=== PATIENT | male | born 1955 | race Caucasian/White ===

== ENCOUNTER 2016-09-14 04:41 | Emergency (ER) | payer MEDICARE, BC ==
[2016-09-14] MEDS ORDERED: Sodium Chloride 0.9% 1,000 ML IV SCH (05:15)
--- NOTE | 2016-09-14 05:18 | EDM.PDOC ---
<Taras Cordova Noni - Last Filed: 09/14/16 07:07> ED HPI GI/ABDOMINAL - General Chief Complaint: Gastrointestinal Problem Stated Complaint: VOMITING/DIABETIC Time Seen by Provider: 09/14/16 05:00 Source of Information: Reports: Patient, Family (), RN notes reviewed History Limitations: Reports: No limitations - History of Present Illness INITIAL COMMENTS - FREE TEXT/NARRATIVE: The patient states that he developed nausea, vomiting, and abdominal cramps around noon yesterday, 09/13/2016. His blood glucose was normal all day, but apparently went up into the 300s last night. He has not had a fever, to his knowledge. No recent spoiled food. No recent antibiotics. No recent travel. His , who has been eating the same food, has not been ill. No prior similar symptoms. - Related Data Allergies/ADRs: Allergies Allergy/AdvReac Type Severity Reaction Status Date / Time Penicillins Allergy Anaphylactic Verified 03/09/16 06:22 Shock Home Meds: Home Meds Baclofen 20 mg PO BID 03/09/16 [History] Diazepam [Valium] 10 mg PO TID PRN 03/09/16 [History] Morphine [MS Contin] 60 mg PO TID 03/09/16 [History] Ondansetron [Zofran ODT] 4 mg PO Q6H #6 tab.dis 03/09/16 [Rx] Dicyclomine HCl [Bentyl] 20 mg PO Q6HR PRN 09/14/16 [History] Insulin Aspart [NovoLOG] 1 dose SQ ASDIRECTED 09/14/16 [History] Ondansetron [Zofran ODT] 4 mg PO Q6H #8 tab.dis 09/14/16 [Rx] Past Medical History Cardiovascular History: Reports: High cholesterol Respiratory History: Reports: COPD Musculoskeletal History: Reports: Arthritis Neurological History: Reports: Neuropathy, diabetic Psychiatric History: Reports: Anxiety Endocrine/Metabolic History: Reports: Diabetes, type II, Hypothyroidism, Obesity /BMI 30+ - Past Surgical History HEENT Surgical History: Reports: Tonsillectomy GI Surgical History: Reports: Cholecystectomy Neurological Surgical History: Reports: C-Spine (ACDF) Musculoskeletal Surgical History: Reports: Arthroscopic procedure (Left rotator cuff) Social & Family History - Family History Family Medical History: Noncontributory - Tobacco Use Smoking Status *Q: Current Every Day Smoker Years of Tobacco use: 40 Packs/Tins Daily: 0.5 - Alcohol Use Alcohol Use History: Yes Alcohol Use Frequency: Rarely - Recreational Drug Use Recreational Drug Use: No - Living Situation & Occupation Living situation: Reports: , with spouse Occupation: retired ED ROS GENERAL - Review of Systems Review Of Systems: See Below Constitutional: Reports: no symptoms HEENT: Reports: No symptoms Respiratory: Reports: No Symptoms Cardiovascular: Reports: No symptoms Endocrine: Reports: no symptoms GI/Abdominal: Reports: No symptoms : Reports: no symptoms Musculoskeletal: Reports: no symptoms Skin: Reports: no symptoms Neurological: Reports: No Symptoms Psychiatric: Reports: No symptoms Hematologic/Lymphatic: Reports: no symptoms Immunologic: Reports: no symptoms ED EXAM, GI/ABD - Physical Exam Exam: See Below Exam Limited By: No limitations General Appearance: alert, WD/WN, no apparent distress Eyes: bilateral: normal appearance, EOMI Ears: normal external exam, hearing grossly normal Nose: normal inspection, no blood Throat/Mouth: Normal inspection, Normal lips, Normal voice, No airway compromise Head: atraumatic, normocephalic Neck: normal inspection, full range of motion Respiratory/Chest: no respiratory distress, lungs clear, normal breath sounds, no accessory muscle use, chest non-tender Cardiovascular: normal peripheral pulses, regular rate, rhythm, no edema, no gallop, no JVD, no murmur, no rub GI/Abdominal: normal bowel sounds, soft, no organomegaly, no distention, no abnormal bruit, no mass, tenderness (Generalized, non-focal, but more severe than expected) Back Exam: normal inspection, full range of motion, NT Extremities: normal inspection, normal range of motion, normal capillary refill Neurological: alert, oriented, normal cognition, no motor/sensory deficits Psychiatric: normal affect Skin Exam: Warm, Dry, Intact, Normal color, No rash Lymphatic: no adenopathy Course - Vital Signs Last Recorded V/S: Last Vital Signs Temp 36.6 C 09/14/16 04:49 Pulse 98 09/14/16 04:49 Resp 20 09/14/16 04:49 BP 147/75 H 09/14/16 04:49 Pulse Ox 98 09/14/16 04:49 - Orders/Labs/Meds Orders: Active Orders 24 hr Category Date Time Status GLUCOSE,POC [POC] Routine Lab 09/14/16 08:50 Received Labs: Laboratory Tests 09/14/16 09/14/16 09/14/16 Range/Units 05:53 05:53 06:45 WBC 10.62 H (4.23-9.07) K/mm3 RBC 5.29 (4.63-6.08) M/mm3 Hgb 16.0 (13.7-17.5) gm/L Hct 47.8 (40.1-51.0) % MCV 90.4 (79.0-92.2) fl MCH 30.2 (25.7-32.2) pg MCHC 33.5 (32.2-35.5) g/dl RDW Std Deviation 43.5 (35.1-43.9) fL Plt Count 219 (163-337) K/mm3 MPV 11.1 (9.4-12.3) fl Neutrophils % (Manual) 87 H (40-60) % Band Neutrophils % 1 (0-10) % Lymphocytes % (Manual) 11 L (20-40) % Atypical Lymphs % 0 % Monocytes % (Manual) 1 L (2-10) % Eosinophils % (Manual) 0 L (0.8-7.0) % Basophils % (Manual) 0 L (0.2-1.2) Platelet Estimate Adequate RBC Morph Comment Normal Sodium 137 (136-145) mEq/L Potassium 4.0 (3.5-5.1) mEq/L Chloride 98 (98-107) mEq/L Carbon Dioxide 26 (21-32) mEq/L Anion Gap 17.0 H (5-15) BUN 21 H (7-18) mg/dL Creatinine 1.3 (0.7-1.3) mg/dL Est Cr Clr Drug Dosing 61.61 mL/min Estimated GFR (MDRD) 56 (>60) mL/min BUN/Creatinine Ratio 16.2 (14-18) Glucose 346 H (80-115) mg/dL POC Glucose (80-115) mg/dL Calcium 8.9 (8.5-10.1) mg/dL Total Bilirubin 0.5 (0.2-1.0) mg/dL AST 26 (15-37) U/L ALT 50 (16-63) U/L Alkaline Phosphatase 126 H (46-116) U/L Total Protein 7.7 (6.4-8.2) g/dl Albumin 4.0 (3.4-5.0) g/dl Globulin 3.7 gm/dL Albumin/Globulin Ratio 1.1 (1-2) Lipase 73 (73-393) U/L Urine Color Yellow (Yellow) Urine Appearance Clear (Clear) Urine pH 5.5 (5.0-8.0) Ur Specific [place] 1.020 (1.005-1.030) Urine Protein 1+ H (Negative) Urine Glucose (UA) 2+ H (Negative) Urine Ketones 3+ H (Negative) Urine Occult Blood 1+ H (Negative) Urine Nitrite Negative (Negative) Urine Bilirubin Negative (Negative) Urine Urobilinogen 0.2 (0.2-1.0) Ur Leukocyte Esterase Negative (Negative) Urine RBC 5-10 H (0-5) /hpf Urine WBC 0-5 (0-5) /hpf Ur Epithelial Cells Not seen (0-5) /hpf Urine Bacteria Not seen (FEW) /hpf Urine Mucus Not seen (FEW) /hpf 09/14/16 Range/Units 07:26 WBC (4.23-9.07) K/mm3 RBC (4.63-6.08) M/mm3 Hgb (13.7-17.5) gm/L Hct (40.1-51.0) % MCV (79.0-92.2) fl MCH (25.7-32.2) pg MCHC (32.2-35.5) g/dl RDW Std Deviation (35.1-43.9) fL Plt Count (163-337) K/mm3 MPV (9.4-12.3) fl Neutrophils % (Manual) (40-60) % Band Neutrophils % (0-10) % Lymphocytes % (Manual) (20-40) % Atypical Lymphs % % Monocytes % (Manual) (2-10) % Eosinophils % (Manual) (0.8-7.0) % Basophils % (Manual) (0.2-1.2) Platelet Estimate RBC Morph Comment Sodium (136-145) mEq/L Potassium (3.5-5.1) mEq/L Chloride (98-107) mEq/L Carbon Dioxide (21-32) mEq/L Anion Gap (5-15) BUN (7-18) mg/dL Creatinine (0.7-1.3) mg/dL Est Cr Clr Drug Dosing mL/min Estimated GFR (MDRD) (>60) mL/min BUN/Creatinine Ratio (14-18) Glucose (80-115) mg/dL POC Glucose 324 H (80-115) mg/dL Calcium (8.5-10.1) mg/dL Total Bilirubin (0.2-1.0) mg/dL AST (15-37) U/L ALT (16-63) U/L Alkaline Phosphatase (46-116) U/L Total Protein (6.4-8.2) g/dl Albumin (3.4-5.0) g/dl Globulin gm/dL Albumin/Globulin Ratio (1-2) Lipase (73-393) U/L Urine Color (Yellow) Urine Appearance (Clear) Urine pH (5.0-8.0) Ur Specific [place] (1.005-1.030) Urine Protein (Negative) Urine Glucose (UA) (Negative) Urine Ketones (Negative) Urine Occult Blood (Negative) Urine Nitrite (Negative) Urine Bilirubin (Negative) Urine Urobilinogen (0.2-1.0) Ur Leukocyte Esterase (Negative) Urine RBC (0-5) /hpf Urine WBC (0-5) /hpf Ur Epithelial Cells (0-5) /hpf Urine Bacteria (FEW) /hpf Urine Mucus (FEW) /hpf Meds: Medications Discontinued Medications Generic Name Dose Route Start Last Admin Trade Name Freq PRN Reason Stop Dose Admin Hydromorphone HCl 1 mg 09/14/16 06:10 09/14/16 06:23 Dilaudid IVPUSH 09/14/16 06:11 1 mg ONETIME ONE Administration Sodium Chloride 1,000 mls @ 150 mls/hr 09/14/16 05:15 09/14/16 05:29 Normal Saline IV 150 mls/hr ASDIRECTED COREY Administration Promethazine HCl 25 mg/ Sodium 51 mls @ 100 mls/hr 09/14/16 06:30 09/14/16 07 :08 Chloride IV 09/14/16 07:00 100 mls/hr ONETIME ONE Administration Sodium Chloride 1,000 mls @ 999 mls/hr 09/14/16 07:10 09/14/16 07:48 Normal Saline IV 09/14/16 08:10 999 mls/hr ONETIME ONE Administration Insulin Human Regular 10 unit 09/14/16 07:09 09/14/16 07:38 Humulin R SUBCUT 09/14/16 07:10 10 units ONETIME STA Administration Protocol Iopamidol 20 ml 09/14/16 06:43 09/14/16 06:59 Isovue-370 (76%) IVPUSH 09/14/16 06:44 20 ml ONETIME ONE Administration Iopamidol 100 ml 09/14/16 06:43 09/14/16 06:59 Isovue-370 (76%) IVPUSH 09/14/16 06:44 100 ml ONETIME ONE Administration Ondansetron HCl 8 mg 09/14/16 05:11 09/14/16 05:30 Zofran IVPUSH 09/14/16 05:12 4 mg ONETIME ONE Administration - Re-Assessments/Exams Free Text/Narrative Re-Assessment/Exam: 09/14/16 07:[address] Lopez, and care of the patient turned over to him at this time, for change of shift. Departure - Departure Disposition: Home, Self-Care 01 Clinical Impression: Nausea and vomiting in adult, Elevated blood sugar Acute gastritis Qualifiers: Gastritis type: other gastritis Gastritis bleeding: without bleeding Qualified Code(s): K29.00 - Acute gastritis without bleeding Abdominal pain Qualifiers: Abdominal location: epigastric Qualified Code(s): R10.13 - Epigastric pain Prescriptions: Ondansetron [Zofran ODT] 4 mg PO Q6H #8 tab.dis Referrals: Nate Silva MD [Primary Care Provider] - Forms: ED Department Discharge Additional Instructions: Evaluation in the emergency room today in regards to sudden onset of abdominal pain with nausea and vomiting starting at noon yesterday. Emesis was bilious. No blood noted. No diarrhea ensued. Lab work identified elevated blood sugar 346 with a metabolic acidosis ensure not able to use carbohydrates for energy. Breaking down your blood fats causing acidosis and blood which continues to the nausea vomiting and abdominal pain. CT of head was performed it did not reveal anything sinister or serious. He does show increased stool throughout the transverse colon only. You're treated in the ED with intravenous fluids and medication Phenergan 25 mg IV for nausea relief. Dilaudid 1 mg was given for pelvic pain relief as well. Treatment at home is clear fluids today such as Gatorade Powerade 5-6 ounces per hour. Zofran 4 mg under the tongue every 4-6 hours needed to relieve nausea or vomiting. When feeling better, try crackers first ,if tolerated then advance to soup broth or lites soup such as turkey rice turkey ,noodle etc. You are to monitor blood sugars every 2-4 hours and you may have to give yourself a few extra doses of insulin per sliding scale if blood sugars remain high due to current illness. Given 10 units of regular Humalog insulin in the ED subcutaneously. <Abel Lopez - Last Filed: 09/14/16 08:57> Course - Re-Assessments/Exams Free Text/Narrative Re-Assessment/Exam: 09/14/16 07:[address] Cordova at change of shift. He did about an elevated anion gap at 17.9 which may be contributing to some of his abdominal pain. CT is pending. Certainly back at 346 and therefore he will receive 10 units of Humalog insulin subcutaneously at this time. IV will be opened up to 999 mils per hour to try and reduce his metabolic acidosis. 09/14/16 07:27 CT of the abdomen and pelvis has been completed. It is essentially within normal limits. His abdominal pain is partially due to his metabolic acidosis and partially due to recurrent vomiting. There is a fair amount of stool throughout the transverse colon as well. Patient reports that he still feeling quite a bit of upper abdominal discomfort. Further nausea the Phenergan is running at this time. IV will be opened to full once the Phenergan has been infused. 09/14/16 08:47 Urinalysis showed 3+ ketones and 5-10 RBCs per high-power field. Patient is starting to feel better. He's just about completely full liter of IV fluid. He'll be discharged home on clear fluids such as Gatorade Powerade slept most of the day. Zofran 44 mg sublingual every 4-6 hours when necessary for nausea or vomiting relief. He'll monitor his sugars closely and use insulin on a sliding scale to maintain control of his blood sugars. Departure - Departure Time of Disposition: 08:48 Condition: fair
[2016-09-14] MEDS: Ondansetron 4 MG/2 ML SDV IVPUSH ONE ×2 (05:25→05:30)
[2016-09-14] MEDS ORDERED: HYDROmorphone 1 MG/ML Syringe IVPUSH ONE (06:10)
[2016-09-14] MEDS ORDERED: Promethazine 25 MG in Sodium Chloride 0.9% 50 ML IV ONE (06:30)
[2016-09-14] MEDS ORDERED: Iopamidol 755 Mg/ML 100 ML Bottle IVPUSH ONE (06:43)
[2016-09-14] MEDS ORDERED: Iopamidol 755 MG/ML 50 ML Bottle IVPUSH ONE (06:43)
[2016-09-14] MEDS ORDERED: Insulin Regular, Human 100 Units/ML 3 ML Vial SUBCUT STA (07:09)
[2016-09-14] MEDS ORDERED: Sodium Chloride 0.9% 1,000 ML IV ONE (07:10)
--- NOTE | 2016-09-14 07:28 | CT ---
CT abdomen and pelvis Technique: Multiple axial sections were obtained from above the dome of the diaphragm inferiorly through the pubic symphysis. Intravenous and oral contrast was utilized. Delayed images were also obtained through the bladder. Comparison: Previous abdominal x-ray of 03/09/16. Findings: Visualized lung bases show nothing acute. Liver shows no focal parenchymal abnormality. Spleen appears within normal limits. Adrenal glands show no nodule. Pancreas is somewhat atrophied but otherwise unremarkable. Kidneys show contrast enhancement without hydronephrosis or mass. Aorta shows atherosclerotic calcification which continues into the iliac vessels. No aneurysm is seen. No retroperitoneal adenopathy or mesenteric abnormalities are noted. No bowel dilatation is seen. Appendix is seen and appears normal. No free fluid or inflammatory change is seen. Delayed images show contrast within the bladder. Bone window settings show scattered degenerative change within the spine. Degenerative change most prominent within the apophyseal joints at L4-L5 and L5-S1. Impression: 1. Incidental findings. Nothing acute is appreciated on CT study of the abdomen and pelvis. Diagnostic code #2
[2016-09-14 17:40] VITALS: BP 142/70
== END 2016-09-14 09:10 | disposition home or self-care (01) ==
LOC: JD.ED 04:41
DX: K29.00 Acute gastritis without bleeding (principal); E78.00 Pure hypercholesterolemia, unspecified; J44.9 Chronic obstructive pulmonary disease, unspecified; F41.9 Anxiety disorder, unspecified; E11.9 Type 2 diabetes mellitus without complications; E03.9 Hypothyroidism, unspecified; E66.9 Obesity, unspecified; Z90.49 Acquired absence of other specified parts of digestive tract; Z98.890 Other specified postprocedural states; Z79.4 Long term (current) use of insulin; F17.210 Nicotine dependence, cigarettes, uncomplicated; Z88.0 Allergy status to penicillin; Z68.33 Body mass index [BMI] 33.0-33.9, adult
CPT/HCPCS: 36415; 74177; 80053; 81001; 82962; 83690; 85025; 96361; 96365; 96372; 96375; 99284; J1170; J1817; J2405; J2550; J7040; J7050; Q9967

== ENCOUNTER 2019-06-17 06:23 | Emergency (ER) | payer MEDICARE, BC ==
[2019-06-17 06:40] VITALS: BP 141/79; PULSE 80
--- NOTE | 2019-06-17 07:12 | EDM.PDOC ---
ED HPI GENERAL MEDICAL PROBLEM - General Chief Complaint: General Stated Complaint: FALL/POST BACK SURGERY/OPEN WOUND Time Seen by Provider: 06/17/19 06:32 Source of Information: Reports: Patient, Family History Limitations: Reports: No Limitations - History of Present Illness INITIAL COMMENTS - FREE TEXT/NARRATIVE: The patient presents with drainage from his incision post back surgery. One week ago he had back surgery with Dr Ramirez at [facility] in [place]. He has fallen about 3 times. He has balance issues due to cervical spine issues in the past. He does not have more pain in his back but he has drainage from the upper part of the incision. The rosi are still intact. He has no fever or chills. He has no other symptoms such as chest pain, shortness of breath, abdominal pain, nausea or vomiting. He still has some numbness and pain in his groin. That was there before the surgery. Onset: Gradual Duration: Day(s): Severity: Moderate Improves with: Reports: None Worsens with: Reports: None Associated Symptoms: Reports: No Other Symptoms - Related Data Allergies Allergy/AdvReac Type Severity Reaction Status Date / Time Penicillins Allergy Anaphylactic Verified 03/09/16 06:22 Shock Home Meds: Home Meds Baclofen 20 mg PO BID 03/09/16 [History] Diazepam [Valium] 10 mg PO Q8HR PRN 03/09/16 [History] Morphine [MS Contin] 60 mg PO BID 03/09/16 [History] Insulin Aspart [NovoLOG] 1 dose SQ ASDIRECTED 09/14/16 [History] Albuterol Sulfate [Proair Respiclick] 90 mcg IH Q6HR PRN 06/17/19 [History] Aspirin [Ecotrin EC] 81 mg PO DAILY 06/17/19 [History] Calcium Carbonate/Vitamin D3 [Calcium 600 + Vit D 400 Softgl] 600 mg PO DAILY [History] Cephalexin [Keflex] 500 mg PO QID #40 capsule 06/17/19 [Rx] Cyclobenzaprine HCl [Amrix] 30 mg PO DAILY PRN 06/17/19 [History] Empagliflozin [Jardiance] 10 mg PO DAILY 06/17/19 [History] Fluticasone Propion/Salmeterol [Fluticasone-Salmeterol 250-50] 1 each IH BID [History] Hydrocodone/Acetaminophen [Lorcet 5-325 mg Tablet] 1 each PO Q6HR PRN 06/17/19 [ History] Levothyroxine [Synthroid] 50 mcg PO DAILY 06/17/19 [History] Metoprolol Succinate 12.5 mg PO DAILY 06/17/19 [History] Multivitamin [Multivitamins] 1 PO DAILY 06/17/19 [History] Omeprazole 20 mg PO DAILY 06/17/19 [History] Orphenadrine [Norflex] 100 mg PO Q12HR PRN 06/17/19 [History] Polyethylene Glycol 3350 [MiraLAX] 17 gm PO DAILY 06/17/19 [History] Sertraline [Zoloft] 50 mg PO BEDTIME 06/17/19 [History] Tamsulosin [Flomax] 0.4 mg PO DAILY 06/17/19 [History] atorvaSTATin [Lipitor] 40 mg PO DAILY 06/17/19 [History] metFORMIN [Glucophage XR] 500 mg PO BID 06/17/19 [History] Past Medical History Cardiovascular History: Reports: High Cholesterol Respiratory History: Reports: COPD Gastrointestinal History: Reports: Chronic Constipation Musculoskeletal History: Reports: Arthritis Neurological History: Reports: Neuropathy, Diabetic, Other (See Below) Other Neuro History: headaches x 3 weeks Psychiatric History: Reports: Anxiety Endocrine/Metabolic History: Reports: Diabetes, Type II, Hypothyroidism, Obesity /BMI 30+ Other Endocrine/Metabolic History: Insulin pump and G6 sensor - Infectious Disease History Infectious Disease History: Reports: Chicken Pox, Measles, Shingles - Past Surgical History HEENT Surgical History: Reports: Tonsillectomy GI Surgical History: Reports: Cholecystectomy Musculoskeletal Surgical History: Reports: Arthroscopic Procedure, Other (See Below) Other Musculoskeletal Surgeries/Procedures:: spinal chord injury. cervical fusion and lumbar fusion. Social & Family History - Family History Family Medical History: Noncontributory - Tobacco Use Smoking Status *Q: Former Smoker Used Tobacco, but Quit: Yes Month/Year Tobacco Last Used: 04/12 - Caffeine Use Caffeine Use: Reports: Soda - Recreational Drug Use Recreational Drug Use: No - Living Situation & Occupation Living situation: Reports: , with Spouse Occupation: Retired ED ROS GENERAL - Review of Systems Review Of Systems: See Below Constitutional: Reports: No Symptoms HEENT: Reports: No Symptoms Respiratory: Reports: No Symptoms Cardiovascular: Reports: No Symptoms Endocrine: Reports: No Symptoms GI/Abdominal: Reports: No Symptoms : Reports: No Symptoms Musculoskeletal: Reports: Other (Drainage from an incission in the lumbar spine) ED EXAM, GENERAL - Physical Exam Exam: See Below Exam Limited By: No Limitations General Appearance: Alert, No Apparent Distress Ears: Normal External Exam Nose: Normal Inspection Head: Atraumatic, Normocephalic Neck: Normal Inspection Respiratory/Chest: No Respiratory Distress, Lungs Clear, Normal Breath Sounds Cardiovascular: Regular Rate, Rhythm, No Edema, No Murmur GI/Abdominal: Soft, Non-Tender, No Organomegaly, No Mass Back Exam: Other (Incision to the lumbar spine with rosi. No drainage at this time. There is some mild erythema to the wound edges and the tissue is warm to the touch.) Course - Vital Signs Last Recorded V/S: Last Vital Signs Temp 97.9 F 06/17/19 06:33 Pulse 80 06/17/19 06:33 Resp 16 06/17/19 06:33 BP 141/79 H 06/17/19 06:33 Pulse Ox 96 06/17/19 06:33 - Orders/Labs/Meds Orders: Active Orders 24 hr Category Date Time Status Lumbar Spine 2 or 3V [CR] Stat Exams 06/17/19 07:02 Taken SEDIMENTATION RATE AUTO [HEME] Stat Lab 06/17/19 07:11 Received Labs: Laboratory Tests 06/17/19 06/17/19 Range/Units 07:11 07:11 WBC 6.41 (4.23-9.07) K/mm3 RBC 3.70 L (4.63-6.08) M/mm3 Hgb 10.8 L (13.7-17.5) gm/dl Hct 33.3 L (40.1-51.0) % MCV 90.0 (79.0-92.2) fl MCH 29.2 (25.7-32.2) pg MCHC 32.4 (32.2-35.5) g/dl RDW Std Deviation 44.4 H (35.1-43.9) fL Plt Count 288 D (163-337) K/mm3 MPV 9.7 (9.4-12.3) fl Neut % (Auto) 64.1 (34.0-67.9) % Lymph % (Auto) 21.7 L (21.8-53.1) % [place] % (Auto) 12.2 (5.3-12.2) % Eos % (Auto) 1.2 (0.8-7.0) Baso % (Auto) 0.6 (0.1-1.2) % Neut # (Auto) 4.11 (1.78-5.38) K/mm3 Lymph # (Auto) 1.39 (1.32-3.57) K/mm3 [place] # (Auto) 0.78 (0.30-0.82) K/mm3 Eos # (Auto) 0.08 (0.04-0.54) K/mm3 Baso # (Auto) 0.04 (0.01-0.08) K/mm3 Sodium 142 (136-145) mEq/L Potassium 3.3 L (3.5-5.1) mEq/L Chloride 102 (98-107) mEq/L Carbon Dioxide 29 (21-32) mEq/L Anion Gap 14.3 (5-15) BUN 11 (7-18) mg/dL Creatinine 0.8 (0.7-1.3) mg/dL Est Cr Clr Drug Dosing 96.32 mL/min Estimated GFR (MDRD) > 60 (>60) mL/min BUN/Creatinine Ratio 13.8 L (14-18) Glucose 150 H (80-115) mg/dL Calcium 8.4 L (8.5-10.1) mg/dL Total Bilirubin 0.4 (0.2-1.0) mg/dL AST 172 H (15-37) U/L ALT 142 H (16-63) U/L Alkaline Phosphatase 93 (46-116) U/L C-Reactive Protein 34.5 H* (<1.0) mg/dL Total Protein 6.6 (6.4-8.2) g/dl Albumin 2.4 L (3.4-5.0) g/dl Globulin 4.2 gm/dL Albumin/Globulin Ratio 0.6 L (1-2) Meds: Medications Discontinued Medications Generic Name Dose Route Start Last Admin Trade Name Freq PRN Reason Stop Dose Admin Hydromorphone HCl 1 mg 06/17/19 07:50 Dilaudid IM 06/17/19 07:51 ONETIME ONE - Re-Assessments/Exams Free Text/Narrative Re-Assessment/Exam: 06/17/19 07:12 I ordered an x-ray of his back and some labs. 06/17/19 08:17 His x-ray shows nothing acute. His WBC was normal at 6.41. His Hgb is low at 10.8. His K is a little low at 3.3. His glucose is 150. His AST is elevated at 172. His ALT is elevated at 142. His CRP is elevated at 34.5. I called [facility] in [place] and talked with Dr Freeman and he said it would be early for an infection but he wanted the cultures and I will start him on some keflex until they come back. He has more pain so I have ordered some dilaudid 1mg IM. Departure - Departure Time of Disposition: 08:25 Disposition: Home, Self-Care 01 Condition: Good Clinical Impression: Wound drainage - Discharge Information *PRESCRIPTION DRUG MONITORING PROGRAM REVIEWED*: Not Applicable *COPY OF PRESCRIPTION DRUG MONITORING REPORT IN PATIENT SIM: Not Applicable Prescriptions: Cephalexin [Keflex] 500 mg PO QID #40 capsule Referrals: Nate Silva MD [Primary Care Provider] - Miguel Deshpande MD [Consulting Physician] - 1 Week Forms: ED Department Discharge Additional Instructions: Take your medication as prescribed. Take the keflex 4 times per day for 10 days. Please return if you are worse. Follow up with your doctor within a week. Sepsis Event Note - Evaluation Sepsis Screening Result: No Definite Risk - Focused Exam Vital Signs: Vital Signs Temp Pulse Resp BP Pulse Ox 06/17/19 06:33 97.9 F 80 16 141/79 H 96 Date Exam was Performed: 06/17/19 Time Exam was Performed: 08:17 - My Orders Last 24 Hours: My Active Orders 06/17/19 07:02 Lumbar Spine 2 or 3V [CR] Stat 06/17/19 07:11 SEDIMENTATION RATE AUTO [HEME] Stat - Assessment/Plan Last 24 Hours: My Active Orders 06/17/19 07:02 Lumbar Spine 2 or 3V [CR] Stat 06/17/19 07:11 SEDIMENTATION RATE AUTO [HEME] Stat
[2019-06-17] MEDS ORDERED: HYDROmorphone 1 MG/ML Syringe IM ONE (07:50)
--- NOTE | 2019-06-17 09:18 | CR ---
Lumbar spine: AP, lateral and cone down lateral view centered to the lumbosacral junction were obtained. Comparison: Previous lumbar spine study of 11/05/18. Transpedicle screws and intervertebral disc fixation is noted at L4-5 and L5-S1. Mild disc space narrowing is noted at T11-12 and T12-L1. Other disc spaces are maintained. Vertebral body heights are maintained. Pedicles are intact. Visualized transverse and spinous processes are intact. No subluxation or fracture is seen. Skin rosi are present within the posterior back. Impression: 1. Recent surgery at L4-5 and L5-S1. 2. Mild degenerative change. 3. Nothing acute is appreciated on 3 view lumbar spine exam. Diagnostic code #2 This report was dictated in [place] Standard Time
== END 2019-06-17 09:05 | disposition home or self-care (01) ==
LOC: JD.ED 06:23
DX: T81.89XA Other complications of procedures, not elsewhere classified, initial encounter (principal); J44.9 Chronic obstructive pulmonary disease, unspecified; E78.00 Pure hypercholesterolemia, unspecified; E11.40 Type 2 diabetes mellitus with diabetic neuropathy, unspecified; E66.9 Obesity, unspecified; E03.9 Hypothyroidism, unspecified; F41.9 Anxiety disorder, unspecified; Z79.82 Long term (current) use of aspirin; Z79.899 Other long term (current) drug therapy; Z79.4 Long term (current) use of insulin; Z79.84 Long term (current) use of oral hypoglycemic drugs; Z79.51 Long term (current) use of inhaled steroids; Z79.890 Hormone replacement therapy; Z87.891 Personal history of nicotine dependence; Z88.0 Allergy status to penicillin
CPT/HCPCS: 36415; 72100; 80053; 85025; 85652; 86140; 87075; 87205; 96372; 99283; J1170

== ENCOUNTER 2019-08-16 01:51 | Inpatient (IN) | payer MEDICARE, BC ==
[2019-08-16] MEDS ORDERED: Acetaminophen 325 MG Tab PO ONE (02:17)
--- NOTE | 2019-08-16 02:23 | EDM.PDOC ---
ED HPI GENERAL MEDICAL PROBLEM - General Chief Complaint: Respiratory Problem Stated Complaint: CHILLS COUGH HEADACHE Time Seen by Provider: 08/16/19 01:58 Source of Information: Reports: Patient, Family () History Limitations: Reports: No Limitations - History of Present Illness INITIAL COMMENTS - FREE TEXT/NARRATIVE: Mr. Mcneal is a very pleasant 64-year-old man with a past medical history significant for COPD and diabetes, who states that he was in his usual state of health until 23:30 tonight, when he suddenly developed a cough productive of clearish sputum, chills and shivers, and a headache. He is that his chest was burning all afternoon, although he is not able to elaborate - I got the impression that he was talking about GERD-like symptoms. No abdominal pain. He suffers from chronic constipation, but no recent diarrhea. No urinary symptoms. The patient did not take any [id number] or home remedies prior to coming to the ED. Here in the ED, the patient's BP is found to be elevated, he is tachycardic, tachypneic, with an oxygen saturation of 84% on room air, up to 91% on 4 L of oxygen per nasal cannula. The patient does not take supplemental oxygen at home. The patient's PCP is Dr. Nate Silva. He received an influenza vaccine this season. Neck Pain Score (Numeric/FACES): 7 - Related Data Allergies Allergy/AdvReac Type Severity Reaction Status Date / Time Penicillins Allergy Anaphylactic Verified 08/16/19 02:05 Shock Home Meds: Home Meds Baclofen 2.5 mg PO TID 03/09/16 [History] Diazepam [Valium] 10 mg PO Q8HR PRN 03/09/16 [History] Morphine [MS Contin] 120 mg PO BID 03/09/16 [History] Insulin Aspart [NovoLOG] 1 dose SQ ASDIRECTED 09/14/16 [History] Albuterol Sulfate [Proair Respiclick] 90 mcg IH Q6HR PRN 06/17/19 [History] Aspirin [Ecotrin EC] 81 mg PO DAILY 06/17/19 [History] Calcium Carbonate/Vitamin D3 [Calcium 600 + Vit D 400 Softgl] 600 mg PO DAILY [History] Cyclobenzaprine HCl [Amrix] 30 mg PO DAILY PRN 06/17/19 [History] Empagliflozin [Jardiance] 10 mg PO DAILY 06/17/19 [History] Fluticasone Propion/Salmeterol [Fluticasone-Salmeterol 250-50] 1 each IH BID [History] Levothyroxine [Synthroid] 50 mcg PO DAILY 06/17/19 [History] Metoprolol Succinate 25 mg PO DAILY 06/17/19 [History] Multivitamin [Multivitamins] 1 tab PO DAILY 06/17/19 [History] Omeprazole 20 mg PO DAILY 06/17/19 [History] Orphenadrine [Norflex] 100 mg PO Q12HR PRN 06/17/19 [History] Sertraline [Zoloft] 50 mg PO BEDTIME 06/17/19 [History] Tamsulosin [Flomax] 0.4 mg PO DAILY 06/17/19 [History] atorvaSTATin [Lipitor] 20 mg PO DAILY 06/17/19 [History] metFORMIN [Glucophage XR] 500 mg PO BID 06/17/19 [History] polyethylene glycoL 3350 [MiraLAX] 17 gm PO DAILY 06/17/19 [History] Benazepril [Lotensin] 10 mg PO DAILY 08/16/19 [History] Benzonatate 100 mg PO TID PRN 08/16/19 [History] Enalapril [Vasotec] 10 mg PO DAILY 08/16/19 [History] Past Medical History Cardiovascular History: Reports: High Cholesterol Respiratory History: Reports: COPD Musculoskeletal History: Reports: Arthritis Neurological History: Reports: Neuropathy, Diabetic Psychiatric History: Reports: Anxiety Endocrine/Metabolic History: Reports: Diabetes, Type II, Hypothyroidism, Obesity /BMI 30+ - Infectious Disease History Infectious Disease History: Reports: Chicken Pox, Measles, Shingles - Past Surgical History HEENT Surgical History: Reports: Tonsillectomy GI Surgical History: Reports: Cholecystectomy Neurological Surgical History: Reports: C-Spine (ACDF), Lumbar Spine (L5-S1 fusion) Musculoskeletal Surgical History: Reports: Shoulder Surgery (left rotator cuff repair, arthroscopic) Social & Family History - Family History Family Medical History: Noncontributory - Tobacco Use Smoking Status *Q: Former Smoker Years of Tobacco use: 49 Packs/Tins Daily: 1.5 Month/Year Tobacco Last Used: Quit Jan 2018 - Caffeine Use Caffeine Use: Reports: Soda - Alcohol Use Alcohol Use History: Yes Alcohol Use Frequency: Rarely - Recreational Drug Use Recreational Drug Use: No - Living Situation & Occupation Living situation: Reports: , with Spouse Occupation: Retired ED ROS GENERAL - Review of Systems Review Of Systems: Comprehensive ROS is negative, except as noted in HPI. GI/Abdominal: Reports: Constipation (chronic) ED EXAM, GENERAL - Physical Exam Exam: See Below Exam Limited By: No Limitations General Appearance: Alert, WD/WN, Mild Distress (complaining of cold) Eye Exam: Bilateral Eye: EOMI, Normal Inspection Ears: Normal External Exam, Hearing Loss Nose: Normal Inspection, No Blood Throat/Mouth: Normal Inspection, Normal Lips, Normal Voice, No Airway Compromise Head: Atraumatic, Normocephalic Neck: Normal Inspection, Full Range of Motion Respiratory/Chest: No Respiratory Distress, No Accessory Muscle Use, Decreased Breath Sounds (throughout). No: Crackles, Rhonchi, Wheezing, Stridor, Prolonged Expiration Cardiovascular: Normal Peripheral Pulses, No Edema, No Gallop, No JVD, No Murmur , No Rub, Tachycardia (regular) Peripheral Pulses: 4+: Radial (L), Radial (R) GI/Abdominal: Normal Bowel Sounds, Soft, Non-Tender, No Organomegaly, No Distention, No Abnormal Bruit, No Mass (Male) Exam: Deferred Rectal (Males) Exam: Deferred Back Exam: Normal Inspection, Full Range of Motion, NT Extremities: Normal Inspection, Normal Range of Motion, No Pedal Edema, Normal Capillary Refill Neurological: Alert, Oriented, Normal Cognition, No Motor/Sensory Deficits Psychiatric: Normal Affect Skin Exam: Warm, Dry, Intact, Normal Color, No Rash EKG INTERPRETATION EKG Date: 08/16/19 Time: 02:02 Rhythm: Other (Sinus tachycardia) Rate (Beats/Min): 113 Sterling: RAD-Right Sterling Deviation (slight) P-Wave: Present QRS: Normal ST-T: Normal QT: Normal Comparison: No Change (04/24/2018) Course - Vital Signs Last Recorded V/S: Last Vital Signs Temp 37.2 C 08/16/19 02:00 Pulse 133 H 08/16/19 02:00 Resp 28 H 08/16/19 02:00 BP 161/134 H 08/16/19 02:00 Pulse Ox 84 L 08/16/19 02:00 - Orders/Labs/Meds Orders: Active Orders 24 hr Category Date Time Status EKG Documentation Completion [RC] STAT Care 08/16/19 02:13 Active Ang Chest [CT] Stat Exams 08/16/19 03:38 Taken Chest 2V [CR] Stat Exams 08/16/19 02:13 Taken CULTURE BLOOD [BC] Stat Lab 08/16/19 02:39 Received CULTURE BLOOD [BC] Stat Lab 08/16/19 02:49 Received Sodium Chloride 0.9% [Normal Saline] 1,000 ml Med 08/16/19 03:45 Active IV ASDIRECTED Blood Culture x2 Reflex Set [OM.PC] Stat Oth 08/16/19 02:13 Ordered Medication Orders Sodium Chloride (Normal Saline) 1,000 mls @ 150 mls/hr IV ASDIRECTED COREY Last Admin: 08/16/19 04:08 Dose: 150 mls/hr Labs: Laboratory Tests 08/16/19 08/16/19 08/16/19 Range/Units 02:11 02:11 02:11 WBC 10.70 H (4.23-9.07) K/mm3 RBC 4.81 (4.63-6.08) M/mm3 Hgb 12.9 L D (13.7-17.5) gm/dl Hct 42.4 (40.1-51.0) % MCV 88.1 (79.0-92.2) fl MCH 26.8 (25.7-32.2) pg MCHC 30.4 L (32.2-35.5) g/dl RDW Std Deviation 46.1 H (35.1-43.9) fL Plt Count 364 H D (163-337) K/mm3 MPV 10.1 (9.4-12.3) fl Neutrophils % (Manual) 75 H (40-60) % Band Neutrophils % 0 (0-10) % Lymphocytes % (Manual) 21 (20-40) % Atypical Lymphs % 0 % Monocytes % (Manual) 3 (2-10) % Eosinophils % (Manual) 0 L (0.8-7.0) % Basophils % (Manual) 1 (0.2-1.2) Platelet Estimate Adequate Hypochromasia 1+ slight RBC Morph Comment Not Reportable PT 10.0 (9.7-12.0) SECONDS INR 0.93 APTT 27 (22-31) SECONDS D-Dimer, Quantitative 1.80 H (0.19-0.50) mg/L Puncture Site ABG pH (7.35-7.45) ABG pCO2 (35.0-45.0) mmHg ABG pO2 (80.0-100.0) mmHg ABG HCO3 (22.0-26.0) meq/L ABG O2 Saturation (96.0-97.0) % ABG Base Excess (-2-2.0) Michel Test A-a Gradient mmHg O2 Delivery Device Oxygen Flow Rate FiO2 (21.00-100.00) % Sodium 141 (136-145) mEq/L Potassium 4.9 D (3.5-5.1) mEq/L Chloride 102 (98-107) mEq/L Carbon Dioxide 30 (21-32) mEq/L Anion Gap 13.9 (5-15) BUN 18 (7-18) mg/dL Creatinine 0.9 (0.7-1.3) mg/dL Est Cr Clr Drug Dosing 85.62 mL/min Estimated GFR (MDRD) > 60 (>60) mL/min BUN/Creatinine Ratio 20.0 H (14-18) Glucose 109 (80-115) mg/dL Lactic Acid (0.4-2.0) mmol/L Calcium 8.8 (8.5-10.1) mg/dL Total Bilirubin 0.3 (0.2-1.0) mg/dL AST 23 (15-37) U/L ALT 27 (16-63) U/L Alkaline Phosphatase 122 H (46-116) U/L Troponin I < 0.017 (0.00-0.056) ng/mL NT-Pro-B Natriuret Pep (0-125) pg/mL Total Protein 7.9 (6.4-8.2) g/dl Albumin 3.5 (3.4-5.0) g/dl Globulin 4.4 gm/dL Albumin/Globulin Ratio 0.8 L (1-2) 08/16/19 08/16/19 08/16/19 Range/Units 02:11 02:11 02:25 WBC (4.23-9.07) K/mm3 RBC (4.63-6.08) M/mm3 Hgb (13.7-17.5) gm/dl Hct (40.1-51.0) % MCV (79.0-92.2) fl MCH (25.7-32.2) pg MCHC (32.2-35.5) g/dl RDW Std Deviation (35.1-43.9) fL Plt Count (163-337) K/mm3 MPV (9.4-12.3) fl Neutrophils % (Manual) (40-60) % Band Neutrophils % (0-10) % Lymphocytes % (Manual) (20-40) % Atypical Lymphs % % Monocytes % (Manual) (2-10) % Eosinophils % (Manual) (0.8-7.0) % Basophils % (Manual) (0.2-1.2) Platelet Estimate Hypochromasia RBC Morph Comment PT (9.7-12.0) SECONDS INR APTT (22-31) SECONDS D-Dimer, Quantitative (0.19-0.50) mg/L Puncture Site Rt radial ABG pH 7.43 (7.35-7.45) ABG pCO2 41.3 (35.0-45.0) mmHg ABG pO2 62.0 L (80.0-100.0) mmHg ABG HCO3 26.9 H (22.0-26.0) meq/L ABG O2 Saturation 92.4 L (96.0-97.0) % ABG Base Excess 2.8 H (-2-2.0) Michel Test Positive A-a Gradient 144 mmHg O2 Delivery Device Cannula Oxygen Flow Rate 4.0 FiO2 36.00 (21.00-100.00) % Sodium (136-145) mEq/L Potassium (3.5-5.1) mEq/L Chloride (98-107) mEq/L Carbon Dioxide (21-32) mEq/L Anion Gap (5-15) BUN (7-18) mg/dL Creatinine (0.7-1.3) mg/dL Est Cr Clr Drug Dosing mL/min Estimated GFR (MDRD) (>60) mL/min BUN/Creatinine Ratio (14-18) Glucose (80-115) mg/dL Lactic Acid 1.7 (0.4-2.0) mmol/L Calcium (8.5-10.1) mg/dL Total Bilirubin (0.2-1.0) mg/dL AST (15-37) U/L ALT (16-63) U/L Alkaline Phosphatase (46-116) U/L Troponin I (0.00-0.056) ng/mL NT-Pro-B Natriuret Pep 179 H (0-125) pg/mL Total Protein (6.4-8.2) g/dl Albumin (3.4-5.0) g/dl Globulin gm/dL Albumin/Globulin Ratio (1-2) Meds: Medications Generic Name Dose Route Start Last Admin Trade Name Freq PRN Reason Stop Dose Admin Sodium Chloride 1,000 mls @ 150 mls/hr 08/16/19 03:45 08/16/19 04:08 Normal Saline IV 150 mls/hr ASDIRECTED COREY Administration Discontinued Medications Generic Name Dose Route Start Last Admin Trade Name Freq PRN Reason Stop Dose Admin Acetaminophen 650 mg 08/16/19 02:17 08/16/19 02:24 Tylenol PO 08/16/19 02:18 650 mg NOW ONE Administration Levofloxacin 750 mg 08/16/19 05:30 08/16/19 05:38 Levaquin PO 08/16/19 05:31 750 mg ONETIME STA Administration - Re-Assessments/Exams Free Text/Narrative Re-Assessment/Exam: 08/16/19 02:18 With a history of cough and chills, and his vitals reflecting tachycardia, tachypnea, and hypoxemia, I am most concerned about pneumonia. I have ordered a work-up that includes blood work, an ABG, 2 sets of blood cultures, an influenza swab, a chest x-ray, and an ECG. I have ordered Tylenol. 08/16/19 02:38 The patient's ABG represents a mixed respiratory acidosis and metabolic alkalosis with hypoxemia. 08/16/19 03:39 The patient CBC is remarkable for WBC count mildly elevated at 10.70, but with 0 % bandemia. His hemoglobin is mildly depressed at 12.9, but with a hematocrit normal at 42.4. His platelets are mildly elevated at 364,000, with the remainder of his CBC being unremarkable. His CMP is remarkable only for alkaline phosphatase mildly elevated at 122, and is otherwise unremarkable. His troponin is undetectably low. His lactic acid level is within normal limits at 1.7. His BNP is mildly elevated at 179. His D-dimer is elevated at 1.80. His coags are within normal limits. His influenza swab is negative. The patient's elevated D-dimer is not due to renal insufficiency, therefore I have ordered a CT angiogram of his chest to evaluate for a PE, along with IV fluid. 08/16/19 04:38 Two-view chest radiograph reviewed. The cardiac silhouette is within normal limits. No pulmonary vascular congestion. No pleural effusions. There are 4 circular opacities in the lower half of the patient's left lung field suspicious for infiltrates vs malignancy. No pneumothorax. Formal read per the Radiologist pending. 08/16/19 05:12 CT angiogram of the chest is read by [facility] as "There are extensive airspace opacities throughout the left lung. The previously seen large area of opacification in the upper left lobe has resolved. The right lung is clear. No pleural effusion or pneumothorax. No evidence of pulmonary embolism. Normal thoracic aorta without aneurysm or dissection. There are slightly decreased shotty mediastinal lymph nodes. There is trace pericardial fluid anteriorly. The visualized abdominal structures are unremarkable. No fracture. " 08/16/19 05:27 Test results discussed with the patient and his . He looks much improved - no longer shivering. Because the patient is hypoxemic, he will require hospitalization, however, he can be treated with oral levofloxacin. The patient cannot be treated with Rocephin and azithromycin, as he has anaphylaxis to penicillin. Unfortunately, no beds are currently available, however, the patient does not want to be transferred to [place] (or possibly further, as we are told that both [place] hospitals may be full, also). The patient is willing to remain here in the ED until such time as a bed becomes available. Departure - Departure Time of Disposition: 05:30 Disposition: Admitted As Inpatient 66 Condition: Fair Clinical Impression: Pneumonia - Discharge Information *PRESCRIPTION DRUG MONITORING PROGRAM REVIEWED*: Not Applicable *COPY OF PRESCRIPTION DRUG MONITORING REPORT IN PATIENT SIM: Not Applicable Referrals: Nate Silva MD [Primary Care Provider] - Forms: ED Department Discharge Sepsis Event Note - Evaluation Sepsis Screening Result: Possible Sepsis Risk - Focused Exam Vital Signs: Vital Signs Temp Pulse Resp BP Pulse Ox 08/16/19 02:00 37.2 C 133 H 28 H 161/134 H 84 L Date Exam was Performed: 08/16/19 Time Exam was Performed: 06:14 - My Orders Last 24 Hours: My Active Orders 08/16/19 02:13 EKG Documentation Completion [RC] STAT Chest 2V [CR] Stat Blood Culture x2 Reflex Set [OM.PC] Stat 08/16/19 02:39 CULTURE BLOOD [BC] Stat 08/16/19 02:49 CULTURE BLOOD [BC] Stat 08/16/19 03:38 Ang Chest [CT] Stat 08/16/19 03:45 Sodium Chloride 0.9% [Normal Saline] 1,000 ml IV ASDIRECTED - Assessment/Plan Last 24 Hours: My Active Orders 08/16/19 02:13 EKG Documentation Completion [RC] STAT Chest 2V [CR] Stat Blood Culture x2 Reflex Set [OM.PC] Stat 08/16/19 02:39 CULTURE BLOOD [BC] Stat 08/16/19 02:49 CULTURE BLOOD [BC] Stat 08/16/19 03:38 Ang Chest [CT] Stat 08/16/19 03:45 Sodium Chloride 0.9% [Normal Saline] 1,000 ml IV ASDIRECTED
[2019-08-16] MEDS ORDERED: Sodium Chloride 0.9% 1,000 ML IV SCH (03:45)
[2019-08-16] MEDS ORDERED: Levofloxacin 750 MG Tab PO STA (05:30)
--- NOTE | 2019-08-16 07:17 | CT ---
CT chest Technique: Multiple axial sections through the chest were obtained. Intravenous contrast was utilized. Findings: Pulmonary arteries are not optimally opacified. No filling defects are seen within the main pulmonary arteries or segmental branches. Smaller subsegmental pulmonary emboli could be missed. Aorta shows no aneurysm. Several scattered lymph nodes are seen within the mediastinum some of which are slightly enlarged most likely due to a left lung process. No pericardial thickening is seen. Visualized portions of the upper abdominal structures show no discrete abnormality. Increased density is noted within the left upper and left lower lung. Right lung is clear. Bone window settings were reviewed which show scattered degenerative change within the spine. Prior cervical spine surgery is noted. No acute osseous finding is appreciated. Impression: 1. Diffuse patchy areas of increased density within the left upper and left lower lung. Findings most likely due to multifocal pneumonia. Severe viral infection can also cause a similar appearance. 2. No definite findings of pulmonary embolism as noted above. Diagnostic code #5 This report was dictated in [place] Standard Time I agree with preliminary report from [facility], finalized on 08/16/19, 6:07 AM Central Time
--- NOTE | 2019-08-16 07:17 | CR ---
Chest: Two views of the chest were obtained. Comparison: Prior chest CT of 04/24/18, no prior chest x-ray. Heart size and mediastinum are normal. Patchy areas of increased density with the left upper and left lower lung are seen. Right lung is clear. Bony structures appear within normal limits for the patient's age. Impression: 1. Patchy areas of increased density within the left chest. Findings most likely due to multifocal pneumonia. 2. Right lung is clear. Diagnostic code #3 This report was dictated in [place] Standard Time
[2019-08-16] MEDS ORDERED: Ondansetron 4 MG/2 ML SDV IV PRN (09:10)
[2019-08-16] MEDS ORDERED: Acetaminophen 325 MG Tab PO PRN (09:18)
[2019-08-16] MEDS: Acetaminophen 325 MG Tab PO PRN (09:44)
[2019-08-16] MEDS ORDERED: Polyethylene Glycol 3350 Powder 17 GM Packet PO SCH (10:00)
[2019-08-16] MEDS ORDERED: SALMETEROL IH SCH (10:00)
[2019-08-16] MEDS ORDERED: FLUTICASONE PROPION IH SCH (10:00)
[2019-08-16] MEDS ORDERED: INSULIN ASPART SQ SCH (10:00)
[2019-08-16] MEDS ORDERED: Metoprolol Succinate 25 MG Tab.ER PO SCH (10:00)
[2019-08-16] MEDS ORDERED: Aspirin 81 MG Tab.EC PO SCH (10:00)
--- NOTE | 2019-08-16 10:11 | PCM.HP.2 ---
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 He reports symptoms began suddenly around 2330. Denies any diarrhea but does state he has chronic constipation. Denies any urinary symptoms. In the ED temp was 37.2 C. Pulse 133. Respirations 20. Blood pressure 161/ 134. Pulse ox 84%. Twelve-lead EKG is obtained showing a sinus tachycardia with right axis deviation 113 bpm. No change from 04/24/2018. Labs were obtained: White count is slightly elevated at 10.70. Hemoglobin is low at 12.9. Hematocrit 42.4. He is normocytic. Platelets are high at 264,000. Neutrophils are elevated at 75%. There is no bandemia. PT is 10. INR 0.93. APTT is 27. D-dimer is 1.80. Sodium is 141. Potassium is 4.9. Chloride 102. Carbon dioxide 30. Anion gap 13.9. BUN is 18. Creatinine 0.9. GFR greater than 60. Glucose is 109. Calcium 8.8. Bilirubin 0.3. AST is 23. ALT 27. Alkaline phosphatase is slightly high at 122. Troponin is negative at less than 0.017. Protein 7.9. Albumin 3.5. ABGs obtained in the right radial showing a pH of 7.43. PCO2 of 41.3. PO2 of 62.0. HCO3 26.9. O2 saturation 92.4. Base excess of 2.8. This is well on 4 L via nasal cannula. Lactic acid is 1.7. proBNP is 179. He is given Tylenol and started on 150 mL/h of NS. He is also given 750 mg p.o. Levaquin. Influenza swab is obtained which is negative. Blood cultures were obtained and pending. Chest x-ray is obtained and shows a patchy area of increased density within the left chest findings are most likely due to multifocal pneumonia. Nothing is seen in the right chest. CT angiogram is obtained interpreted by Dr. Zhang as "1. Diffuse patchy area of increased density within the left upper and left lower lung. Findings most likely due to multifocal pneumonia. Severe viral infection can also cause a similar appearance. 2. No definite findings of pulmonary embolism as noted." His symptoms are noted to improve in the ED however he is requiring oxygen. We were on diversion at the time the patient refused to be transferred and opted instead to remain in the ED until a bed opened up. History of HLD, COPD, arthritis, diabetic neuropathy, anxiety, type II DM, hypothyroidism, obesity. He is a former smoker. He is a full code. His PCP is Dr. Silva. Neck Pain Score (Numeric/FACES): 7 - Related Data Allergies/Adverse Reactions: Allergies Allergy/AdvReac Type Severity Reaction Status Date / Time Penicillins Allergy Anaphylactic Verified 08/16/19 02:05 Shock Home Medications: Home Meds Diazepam [Valium] 10 mg PO Q8HR PRN 03/09/16 [History] Morphine [MS Contin] 120 mg PO BID 03/09/16 [History] Insulin Aspart [NovoLOG] 1 dose SQ ASDIRECTED 09/14/16 [History] Albuterol Sulfate [Proair Respiclick] 90 mcg IH Q6HR PRN 06/17/19 [History] Aspirin [Ecotrin EC] 81 mg PO DAILY 06/17/19 [History] Calcium Carbonate/Vitamin D3 [Calcium 600 + Vit D 400 Softgl] 600 mg PO DAILY [History] Empagliflozin [Jardiance] 10 mg PO DAILY 06/17/19 [History] Fluticasone Propion/Salmeterol [Fluticasone-Salmeterol 250-50] 1 each IH BID [History] Multivitamin [Multivitamins] 1 tab PO DAILY 06/17/19 [History] Omeprazole 20 mg PO DAILY 06/17/19 [History] Orphenadrine [Norflex] 100 mg PO Q12HR PRN 06/17/19 [History] Sertraline [Zoloft] 50 mg PO BEDTIME 06/17/19 [History] Tamsulosin [Flomax] 0.4 mg PO DAILY 06/17/19 [History] atorvaSTATin [Lipitor] 20 mg PO DAILY 06/17/19 [History] metFORMIN [Glucophage XR] 500 mg PO BID 06/17/19 [History] polyethylene glycoL 3350 [MiraLAX] 17 gm PO DAILY 06/17/19 [History] Baclofen 20 mg PO TID 08/16/19 [History] Benazepril [Lotensin] 10 mg PO DAILY 08/16/19 [History] Benzonatate 100 mg PO TID PRN 08/16/19 [History] Cyclobenzaprine [Flexeril] 10 mg PO TID PRN 08/16/19 [History] Enalapril [Vasotec] 10 mg PO DAILY 08/16/19 [History] Levothyroxine [Synthroid] 100 mcg PO ACBREAKFAST 08/16/19 [History] Metoprolol Succinate 12.5 mg PO DAILY 08/16/19 [History] Past Medical History HEENT History: Reports: Impaired Vision, Macular Degeneration Other HEENT History: mac degeneration rt eye treated w/ injections. wears glasses Cardiovascular History: Reports: High Cholesterol Other Cardiovascular History: denies high cholesterol but takes med. on metoprolol as prevntative with diabetes Respiratory History: Reports: Bronchitis, Recurrent, COPD Gastrointestinal History: Reports: Chronic Constipation Genitourinary History: Reports: Prostate Disorder, Retention, Urinary Other Genitourinary History: on flomax for urinary urgency/retention Musculoskeletal History: Reports: Arthritis, Neck Pain, Chronic Other Musculoskeletal History: neck hardware post injury Neurological History: Reports: Headaches, Chronic, Migraines, Neuropathy, Diabetic Other Neuro History: headaches x 3 weeks Psychiatric History: Reports: Anxiety, Depression Endocrine/Metabolic History: Reports: Diabetes, Type II, Hypothyroidism, Obesity /BMI 30+ Other Endocrine/Metabolic History: Insulin pump and G6 sensor Hematologic History: Reports: None Immunologic History: Reports: None Oncologic (Cancer) History: Reports: Malignant Melanoma Other Oncologic History: melanoma on legs, back, shoulders, head back of arms Dermatologic History: Reports: None - Infectious Disease History Infectious Disease History: Reports: Chicken Pox, Measles, Shingles, Other (See Below) Other Infectious Disease History: staph infection last year - Past Surgical History HEENT Surgical History: Reports: Tonsillectomy GI Surgical History: Reports: Cholecystectomy, Colonoscopy Other GI Surgeries/Procedures: takes stool softners and enemas to have BM, no BM 4-5 days is normal Neurological Surgical History: Reports: C-Spine, Lumbar Spine Musculoskeletal Surgical History: Reports: Shoulder Surgery, Other (See Below) Other Musculoskeletal Surgeries/Procedures:: Lumbar hardare Social & Family History - Family History Family Medical History: Noncontributory - Tobacco Use Smoking Status *Q: Former Smoker Years of Tobacco use: 49 Packs/Tins Daily: 1.5 Used Tobacco, but Quit: Yes Month/Year Tobacco Last Used: 1.5 years - Caffeine Use Caffeine Use: Reports: Coffee - Recreational Drug Use Recreational Drug Use: No - Living Situation & Occupation Living situation: Reports: , with Spouse Occupation: Retired H&P Review of Systems - Review of Systems: Review Of Systems: See Below General: Reports: No Symptoms, Chills, Weakness, Fatigue. Denies: Fever, Malaise, Diaphoresis HEENT: Reports: Headaches (acute on chronic ). Denies: Sore Throat Pulmonary: Reports: Cough, Sputum. Denies: Shortness of Breath, Wheezing, Pleuritic Chest Pain Cardiovascular: Reports: No Symptoms, Dyspnea on Exertion. Denies: Chest Pain, Palpitations, Orthopnea, Edema, Blood Pressure Problem Gastrointestinal: Reports: Constipation (chronic ). Denies: Abdominal Pain, Diarrhea, Nausea, Vomiting Genitourinary: Reports: No Symptoms. Denies: Dysuria, Pain Musculoskeletal: Reports: No Symptoms, Neck Pain (chronic), Back Pain (chronic) Skin: Reports: No Symptoms. Denies: Cyanosis Psychiatric: Reports: No Symptoms. Denies: Confusion Neurological: Denies: Pre-Existing Deficit, Trouble Speaking, Difficulty Walking , Weakness, Gait Disturbance Hematologic/Lymphatic: Reports: No Symptoms Immunologic: Reports: No Symptoms Exam - Exam Exam: See Below - Vital Signs Vital Signs: Last Vital Signs Temp 98.9 F 08/16/19 02:00 Pulse 76 08/16/19 08:07 Resp 16 08/16/19 08:07 BP 156/88 H 08/16/19 08:07 Pulse Ox 96 08/16/19 08:07 Weight: 271 lb 1.6 oz - Exam Quality Assessment: Supplemental Oxygen (4L), DVT Prophylaxis General: Alert, Oriented, Cooperative. No: Mild Distress HEENT: Conjunctiva Clear, EACs Clear, Hearing Intact, Mucosa Moist & [place], Posterior Pharynx Clear, PERRLA Neck: Supple, Trachea Midline Lungs: Normal Respiratory Effort, Decreased Breath Sounds. No: Crackles, Rales , Rhonchi, Rub, Wheezing Cardiovascular: Regular Rate, Regular Rhythm GI/Abdominal Exam: Normal Bowel Sounds, Soft, Non-Tender, No Organomegaly, No Distention (Male) Exam: Deferred Rectal (Males) Exam: Deferred Back Exam: Normal Inspection, Full Range of Motion. No: CVA Tenderness (L), CVA Tenderness (R) Extremities: Normal Inspection, Normal Range of Motion, Non-Tender, No Pedal Edema Peripheral Pulses: 2+: Radial (L), Radial (R), Dorsalis Pedis (L), Dorsalis Pedis (R) Skin: Warm, Dry, Intact Neurological: Cranial Nerves Intact (Grossly) Neuro Extensive - Mental Status: Alert, Oriented x3, Normal Mood/Affect - Patient Data Lab Results Last 24 hrs: Laboratory Results - last 24 hr 08/16/19 08/16/19 08/16/19 Range/Units 02:11 02:11 02:11 WBC 10.70 H (4.23-9.07) K/mm3 RBC 4.81 (4.63-6.08) M/mm3 Hgb 12.9 L D (13.7-17.5) gm/dl Hct 42.4 (40.1-51.0) % MCV 88.1 (79.0-92.2) fl MCH 26.8 (25.7-32.2) pg MCHC 30.4 L (32.2-35.5) g/dl RDW Std Deviation 46.1 H (35.1-43.9) fL Plt Count 364 H D (163-337) K/mm3 MPV 10.1 (9.4-12.3) fl Neutrophils % (Manual) 75 H (40-60) % Band Neutrophils % 0 (0-10) % Lymphocytes % (Manual) 21 (20-40) % Atypical Lymphs % 0 % Monocytes % (Manual) 3 (2-10) % Eosinophils % (Manual) 0 L (0.8-7.0) % Basophils % (Manual) 1 (0.2-1.2) Platelet Estimate Adequate Hypochromasia 1+ slight RBC Morph Comment Not Reportable PT 10.0 (9.7-12.0) SECONDS INR 0.93 APTT 27 (22-31) SECONDS D-Dimer, Quantitative 1.80 H (0.19-0.50) mg/L Puncture Site ABG pH (7.35-7.45) ABG pCO2 (35.0-45.0) mmHg ABG pO2 (80.0-100.0) mmHg ABG HCO3 (22.0-26.0) meq/L ABG O2 Saturation (96.0-97.0) % ABG Base Excess (-2-2.0) Michel Test A-a Gradient mmHg O2 Delivery Device Oxygen Flow Rate FiO2 (21.00-100.00) % Sodium 141 (136-145) mEq/L Potassium 4.9 D (3.5-5.1) mEq/L Chloride 102 (98-107) mEq/L Carbon Dioxide 30 (21-32) mEq/L Anion Gap 13.9 (5-15) BUN 18 (7-18) mg/dL Creatinine 0.9 (0.7-1.3) mg/dL Est Cr Clr Drug Dosing 85.62 mL/min Estimated GFR (MDRD) > 60 (>60) mL/min BUN/Creatinine Ratio 20.0 H (14-18) Glucose 109 (80-115) mg/dL Lactic Acid (0.4-2.0) mmol/L Calcium 8.8 (8.5-10.1) mg/dL Total Bilirubin 0.3 (0.2-1.0) mg/dL AST 23 (15-37) U/L ALT 27 (16-63) U/L Alkaline Phosphatase 122 H (46-116) U/L Troponin I < 0.017 (0.00-0.056) ng/mL NT-Pro-B Natriuret Pep (0-125) pg/mL Total Protein 7.9 (6.4-8.2) g/dl Albumin 3.5 (3.4-5.0) g/dl Globulin 4.4 gm/dL Albumin/Globulin Ratio 0.8 L (1-2) 08/16/19 08/16/19 08/16/19 Range/Units 02:11 02:11 02:25 WBC (4.23-9.07) K/mm3 RBC (4.63-6.08) M/mm3 Hgb (13.7-17.5) gm/dl Hct (40.1-51.0) % MCV (79.0-92.2) fl MCH (25.7-32.2) pg MCHC (32.2-35.5) g/dl RDW Std Deviation (35.1-43.9) fL Plt Count (163-337) K/mm3 MPV (9.4-12.3) fl Neutrophils % (Manual) (40-60) % Band Neutrophils % (0-10) % Lymphocytes % (Manual) (20-40) % Atypical Lymphs % % Monocytes % (Manual) (2-10) % Eosinophils % (Manual) (0.8-7.0) % Basophils % (Manual) (0.2-1.2) Platelet Estimate Hypochromasia RBC Morph Comment PT (9.7-12.0) SECONDS INR APTT (22-31) SECONDS D-Dimer, Quantitative (0.19-0.50) mg/L Puncture Site Rt radial ABG pH 7.43 (7.35-7.45) ABG pCO2 41.3 (35.0-45.0) mmHg ABG pO2 62.0 L (80.0-100.0) mmHg ABG HCO3 26.9 H (22.0-26.0) meq/L ABG O2 Saturation 92.4 L (96.0-97.0) % ABG Base Excess 2.8 H (-2-2.0) Michel Test Positive A-a Gradient 144 mmHg O2 Delivery Device Cannula Oxygen Flow Rate 4.0 FiO2 36.00 (21.00-100.00) % Sodium (136-145) mEq/L Potassium (3.5-5.1) mEq/L Chloride (98-107) mEq/L Carbon Dioxide (21-32) mEq/L Anion Gap (5-15) BUN (7-18) mg/dL Creatinine (0.7-1.3) mg/dL Est Cr Clr Drug Dosing mL/min Estimated GFR (MDRD) (>60) mL/min BUN/Creatinine Ratio (14-18) Glucose (80-115) mg/dL Lactic Acid 1.7 (0.4-2.0) mmol/L Calcium (8.5-10.1) mg/dL Total Bilirubin (0.2-1.0) mg/dL AST (15-37) U/L ALT (16-63) U/L Alkaline Phosphatase (46-116) U/L Troponin I (0.00-0.056) ng/mL NT-Pro-B Natriuret Pep 179 H (0-125) pg/mL Total Protein (6.4-8.2) g/dl Albumin (3.4-5.0) g/dl Globulin gm/dL Albumin/Globulin Ratio (1-2) Result Diagrams: 08/16/19 02:11 08/16/19 02:11 Luciano Results Last 24 hrs: Microbiology 08/16/19 02:28 Influenza Type A Antigen Screen - Final Nasopharyngeal Swab NEGATIVE INFLUENZA A VIRUS AG REFERENCE RANGE: NEGATIVE Influenza Type B Antigen Screen - Final NEGATIVE INFLUENZA B VIRUS AG REFERENCE RANGE: NEGATIVE Sepsis Event Note - Evaluation Sepsis Screening Result: Possible Sepsis Risk - Focused Exam Vital Signs: Vital Signs Temp Pulse Resp BP Pulse Ox 08/16/19 08:07 76 16 156/88 H 96 08/16/19 02:00 98.9 F 133 H 28 H 161/134 H 84 L Date Exam was Performed: 08/16/19 Time Exam was Performed: 16:13 - Problem List (1) Pneumonia SNOMED Code(s): 960519264 ICD Code: J18.9 - PNEUMONIA, UNSPECIFIED ORGANISM Status: Acute Priority : High Current Visit: Yes Qualifiers: Pneumonia type: due to unspecified organism Laterality: left Lung location: unspecified part of lung Qualified Code(s): J18.9 - Pneumonia, unspecified organism (2) HLD (hyperlipidemia) SNOMED Code(s): 99088729 ICD Code: E78.5 - HYPERLIPIDEMIA, UNSPECIFIED Status: Chronic Priority: Low Current Visit: No Qualifiers: Hyperlipidemia type: unspecified Qualified Code(s): E78.5 - Hyperlipidemia , unspecified (3) Former smoker SNOMED Code(s): 6029599 ICD Code: Z87.891 - PERSONAL HISTORY OF NICOTINE DEPENDENCE Status: Chronic Priority: Medium Current Visit: Yes (4) Arthritis SNOMED Code(s): 3585278 ICD Code: M19.90 - UNSPECIFIED OSTEOARTHRITIS, UNSPECIFIED SITE Status: Chronic Priority: Low Current Visit: No (5) Diabetic neuropathy SNOMED Code(s): 507985620, 562599087 ICD Code: E11.40 - TYPE 2 DIABETES MELLITUS WITH DIABETIC NEUROPATHY, UNSP Status: Chronic Priority: Medium Current Visit: No Qualifiers: Diabetes mellitus type: other specified (including RENEE) Diabetes mellitus complication detail: with other neurological complication Qualified Code(s): E13.49 - Other specified diabetes mellitus with other diabetic neurological complication (6) Diabetes mellitus SNOMED Code(s): 62952565 ICD Code: E11.9 - TYPE 2 DIABETES MELLITUS WITHOUT COMPLICATIONS Status: Acute Priority: High Current Visit: Yes Qualifiers: Diabetes mellitus type: type 2 Diabetes mellitus termite helper insulin use: without mcfp use Diabetes mellitus complication status: with other specified complication Qualified Code(s): E11.69 - Type 2 diabetes mellitus with other specified complication (7) Insulin pump in place SNOMED Code(s): 755413289 ICD Code: Z96.41 - PRESENCE OF INSULIN PUMP (EXTERNAL) (INTERNAL) Status: Chronic Priority: Medium Current Visit: Yes (8) Anxiety SNOMED Code(s): 70749545 ICD Code: F41.9 - ANXIETY DISORDER, UNSPECIFIED Status: Chronic Priority : Low Current Visit: No (9) Hypothyroidism SNOMED Code(s): 06766369 ICD Code: E03.9 - HYPOTHYROIDISM, UNSPECIFIED Status: Chronic Priority: Low Current Visit: No Qualifiers: Hypothyroidism type: unspecified Qualified Code(s): E03.9 - Hypothyroidism , unspecified (10) Obesity SNOMED Code(s): 149010688, 501910202 ICD Code: E66.9 - OBESITY, UNSPECIFIED Status: Chronic Priority: Low Current Visit: No Qualifiers: Obesity type: unspecified obesity type Obesity classification: unspecified obesity classification Serious obesity comorbidity presence: unspecified whether serious comorbidity present Qualified Code(s): E66.9 - Obesity, unspecified (11) Hx of cervical spine surgery SNOMED Code(s): 097751948 ICD Code: Z98.890 - OTHER SPECIFIED POSTPROCEDURAL STATES Status: Chronic Priority: Medium Current Visit: No (12) History of lumbar spinal fusion SNOMED Code(s): 10506474336898 ICD Code: Z98.1 - ARTHRODESIS STATUS Status: Chronic Priority: Medium Current Visit: No (13) Chronic constipation SNOMED Code(s): 975309605 ICD Code: K59.09 - OTHER CONSTIPATION Status: Chronic Priority: Low Current Visit: No (14) Leukocytosis SNOMED Code(s): 437274654, 522165406 ICD Code: D72.829 - ELEVATED WHITE BLOOD CELL COUNT, UNSPECIFIED Status: Acute Priority: High Current Visit: Yes Qualifiers: Leukocytosis type: unspecified Qualified Code(s): D72.829 - Elevated white blood cell count, unspecified (15) Elevated d-dimer SNOMED Code(s): 805186111 ICD Code: R79.89 - OTHER SPECIFIED ABNORMAL FINDINGS OF BLOOD CHEMISTRY Status: Acute Priority: High Current Visit: Yes (16) Mixed acid base balance disorder SNOMED Code(s): 03806712 ICD Code: E87.4 - MIXED DISORDER OF ACID-BASE BALANCE Status: Acute Priority: High Current Visit: Yes (17) Hypoxemia SNOMED Code(s): 877489991 ICD Code: R09.02 - HYPOXEMIA Status: Acute Priority: High Current Visit : Yes (18) COPD (chronic obstructive pulmonary disease) SNOMED Code(s): 22065991 ICD Code: J44.9 - CHRONIC OBSTRUCTIVE PULMONARY DISEASE, UNSPECIFIED Status : Chronic Priority: Medium Current Visit: Yes Qualifiers: COPD type: unspecified COPD Qualified Code(s): J44.9 - Chronic obstructive pulmonary disease, unspecified (19) Hypertension SNOMED Code(s): 51160965 ICD Code: I10 - ESSENTIAL (PRIMARY) HYPERTENSION Status: Acute Priority: High Current Visit: Yes Qualifiers: Hypertension type: unspecified Qualified Code(s): I10 - Essential (primary ) hypertension Problem List Initiated/Reviewed/Updated: Yes Orders Last 24hrs: Active Orders 24 hr Category Date Time Status Admission Status [Patient Status] [ADT] Routine ADT 08/16/19 08:16 Active Acapella [RT Chest Physiotherapy] [RC] ASDIRECTED Care 08/16/19 09:14 Active Blood Glucose Check, Bedside [RC] QIDACANDBED Care 08/16/19 09:19 Inactive Height and Weight [RC] DAILY Care 08/16/19 09:10 Active Intake and Output [RC] QSHIFT Care 08/16/19 09:10 Active Oxygen Therapy [RC] PRN Care 08/16/19 09:10 Active Oxygen Therapy [RC] PRN Care 08/16/19 09:17 Active Pulse Oximetry [RC] PRN Care 08/16/19 09:10 Active RT Aerosol Therapy [RC] ASDIRECTED Care 08/16/19 09:11 Active Up With Assistance [RC] ASDIRECTED Care 08/16/19 09:10 Active VTE/DVT Education [RC] PER UNIT ROUTINE Care 08/16/19 09:10 Active VTE/DVT Education [RC] PER UNIT ROUTINE Care 08/16/19 09:17 Active Vital Signs [RC] Q4H Care 08/16/19 09:10 Active Consult to Spiritual Care [CONS] Routine Cons 08/16/19 09:10 Active OT Evaluation and Treatment [CONS] Routine Cons 08/16/19 09:10 Active PT Evaluation and Treatment [CONS] Routine Cons 08/16/19 09:10 Active Respiratory Care Assess and Treatment [CONS] Routine Cons 08/16/19 09:10 Active ADA Diabetic [[place] [employer] Diet] [DIET Diet 08/16/19 Breakfast Active ] CBC WITH AUTO DIFF [HEME] AM Lab 08/17/19 05:11 Ordered CMP [COMPREHENSIVE METABOLIC PN,CMP] [CHEM] AM Lab 08/17/19 05:11 Ordered CULTURE BLOOD [BC] Stat Lab 08/16/19 02:39 Received CULTURE BLOOD [BC] Stat Lab 08/16/19 02:49 Received CULTURE SPUTUM + SMEAR [RM] Routine Lab 08/16/19 10:08 Ordered MAGNESIUM [CHEM] AM Lab 08/17/19 05:11 Ordered METH-RESIST S.AUR,MRSA BY PCR [MOLEC] Routine Lab 08/16/19 09:16 Ordered MYCOPLASMA PNEUMONIAE IGM AB [CHEM] Routine Lab 08/16/19 02:11 Received PHOSPHORUS [CHEM] AM Lab 08/17/19 05:11 Ordered PROCALCITONIN [REF] Routine Lab 08/16/19 02:11 Received RESPIRATORY PANEL Routine Lab 08/16/19 09:13 Ordered STREP PNEUMONIAE ANTIGEN [MREF] Routine Lab 08/16/19 09:08 Ordered Acetaminophen [Tylenol] Med 08/16/19 09:17 Active 650 mg PO Q4H PRN Albuterol/Ipratropium [DuoNeb 3.0-0.5 MG/3 ML] Med 08/16/19 13:00 Active 3 ml NEB QID Aspirin [Halfprin] Med 08/16/19 10:00 Active 81 mg PO DAILY Baclofen [Baclofen] Med 08/16/19 15:00 Ordered 2.5 mg PO TID Benazepril [Lotensin] Med 08/16/19 10:00 Active 10 mg PO DAILY Cyclobenzaprine HCl [Amrix] Med 08/16/19 09:51 Ordered 30 mg PO DAILY PRN Dextromethorphan/guaiFENesin [Robitussin DM] Med 08/16/19 14:00 Active 10 ml PO TID@0700,1400,2100 Enalapril Med 08/17/19 09:00 Ordered 10 mg PO DAILY Enoxaparin [Lovenox] Med 08/17/19 09:00 Active 40 mg SUBCUT DAILY Fluticasone Propion/Salmeterol Med 08/16/19 10:00 Ordered 1 each IH BID Insulin Aspart Med 08/16/19 10:00 Ordered 1 dose SQ ASDIRECTED Levofloxacin/Dextrose 5%-Water [Levaquin in D5W 750 MG/ Med 08/17/19 05:00 Stop Req 150 ML] 750 mg Premix Bag 1 bag IV ONETIME Levofloxacin/Dextrose 5%-Water [Levaquin in D5W 750 MG/ Med 08/17/19 05:30 Ordered 150 ML] 750 mg Premix Bag 1 bag IV Q24H Levothyroxine [Synthroid] Med 08/17/19 06:00 Active 50 mcg PO ACBREAKFAST Metoprolol Succinate [Toprol XL] Med 08/16/19 10:00 Active 25 mg PO DAILY Morphine Med 08/16/19 10:00 Pending 120 mg PO BID Multivitamins,Therapeutic [Thera] Med 08/17/19 09:00 Active 1 each PO DAILY Ondansetron [Zofran] Med 08/16/19 09:10 Active 4 mg IV Q6H PRN Pantoprazole [ProTONIX] Med 08/17/19 09:00 Active 40 mg PO DAILY Sertraline [Zoloft] Med 08/16/19 21:00 Active 50 mg PO BEDTIME Sodium Chloride 0.9% [Normal Saline] 1,000 ml Med 08/16/19 03:45 Active IV ASDIRECTED Tamsulosin [Flomax] Med 08/16/19 10:00 Ordered 0.4 mg PO DAILY polyethylene glycoL 3350 [MiraLAX] Med 08/16/19 10:00 Active 17 gm PO DAILY Blood Culture x2 Reflex Set [OM.PC] Stat Oth 08/16/19 02:13 Ordered Isolation [COMM] Routine Oth 02/21/20 09:16 Ordered Code Status [Resuscitation Status] Routine Resus Stat 08/16/19 09:49 Ordered Medication Orders Acetaminophen (Tylenol) 650 mg PO Q4H PRN PRN Reason: Pain (Mild 1-3)/fever Last Admin: 08/16/19 09:44 Dose: 650 mg Albuterol/Ipratropium (Duoneb 3.0-0.5 Mg/3 Ml) 3 ml NEB QID [facility] Aspirin (Halfprin) 81 mg PO DAILY [facility] Benazepril HCl (Lotensin) 10 mg PO DAILY [facility] Enoxaparin Sodium (Lovenox) 40 mg SUBCUT DAILY [facility] Guaifenesin/Phenylephrine HCl (Robitussin Dm) 10 ml PO TID@0700,1400,2100 [facility] Sodium Chloride (Normal Saline) 1,000 mls @ 150 mls/hr IV ASDIRECTED [facility] Last Admin: 08/16/19 04:08 Dose: 150 mls/hr Levothyroxine Sodium (Synthroid) 50 mcg PO ACBREAKFAST [facility] Metoprolol Succinate (Toprol Xl) 25 mg PO DAILY [facility] Multivitamins (Thera) 1 each PO DAILY [facility] Non-Formulary Medication (Baclofen [Baclofen]) 2.5 mg PO TID [facility] Non-Formulary Medication (Cyclobenzaprine Hcl [Amrix]) 30 mg PO DAILY PRN PRN Reason: Muscle Spasm Non-Formulary Medication (Enalapril) 10 mg PO DAILY [facility] Non-Formulary Medication (Fluticasone Propion/Salmeterol) 1 each IH BID [facility] Non-Formulary Medication (Insulin Aspart) 1 dose SQ ASDIRECTED [facility] Non-Formulary Medication (Morphine) 120 mg PO BID [facility] Ondansetron HCl (Zofran) 4 mg IV Q6H PRN PRN Reason: Nausea/Vomiting Pantoprazole Sodium (Protonix) 40 mg PO DAILY [facility] Polyethylene Glycol (Miralax) 17 gm PO DAILY [facility] Sertraline HCl (Zoloft) 50 mg PO BEDTIME [facility] Tamsulosin HCl (Flomax) 0.4 mg PO DAILY [facility] Assessment/Plan Comment:: Pneumonia Leukocytosis Elevated d-dimer Mixed acid base balance disorder Hypoxemia Former smoker COPD Hypertension Reports chills, cough, headache starting on 08/15/19 around 2330 Denies fever Sepsis screen: No fever, Tachycardia, WBC <12; RR >20; No Organ dysfunction - does not meet criteria Influenza negative ABG shows mixed respiratory acidosis and metabolic alkalosis CT scan shows diffuse patchy areas of increased density within left upper and lower lung Prior CT scan from 03/2019 showed mass in left lung - was transferred to [place] for pulmonology Given PO Levaquin in ED Requiring oxygen Lactic acid WNL IV fluids given in ED PLAN -Switch to IV 750 mg Levaquin -Sputum culture -Mycoplasma, MRSA, Strep pneumo, VRP - ordered -IS/Acapella/RT consult -Scheduled Duonebs -Blood cultures pending -Scheduled robitussin DM -IV fluids as ordered -Obtain pulmonology records -Procalcitonin ordered -Droplet isolation -O2 as needed -Home medications as ordered -AM Labs -Ambulate Diabetic neuropathy Diabetes mellitus; unknown A1C Insulin pump in place Obesity Has insulin pump and monitor Blood sugars have been stable per patient report. Glucose 109 in ED Reports close follow-up by PCP PLAN -Obtain A1C -Continue insulin pump -Hold PO diabetic meds -Monitor blood sugars Anxiety Hypothyroidism Chronic constipation HLD (hyperlipidemia) Arthritis Plan -Home medications -PRN constipation meds if indicated -Pharmacy/nursing to verify home medications as there are some discrepancies Hx of cervical spine surgery History of lumbar spinal fusion Significant back pain Reports significant "shaking" when not on home baclofen Plan -Continue home medications DVT prophylaxis: Lovenox Code status: Full code (confirmed with patient) PCP: Dr. Silva Disposition: Admitted to medical floor for management of hypoxia and pneumonia. Patient was offered transfer in ED as floor was on diversion. Elected to stay until bed opened up the next morning and refused transfer. Expected length of stay: 3-4 total days - Mortality Measure Prognosis:: Good
[2019-08-16] MEDS ORDERED: Morphine 15 MG Tab.ER PO SCH (10:30)
[2019-08-16] MEDS ORDERED: Insulin Lispro 100 Units/ML 3 ML Vial SUBCUT SCH (11:00)
[2019-08-16] MEDS: MORPHINE 100 MG PO SCH ×2 (11:07→20:38)
[2019-08-16] MEDS: Baclofen 10 MG Tab PO SCH ×3 (11:08→20:37)
[2019-08-16] MEDS: Benazepril 10 MG Tab PO SCH (11:08)
[2019-08-16] MEDS: Albuterol/Ipratropium 3.0-0.5 MG/3 ML Neb Soln NEB SCH ×3 (13:02→20:49)
[2019-08-16] MEDS: guaiFENesin/Dextromethorphan 100-10 MG/5 ML Soln 5 ML Cup PO SCH ×2 (15:14→20:39)
[2019-08-16] MEDS: Enoxaparin 40 MG/0.4 ML Syringe SUBCUT SCH (15:14)
[2019-08-16] MEDS: Lactated Ringers 1,000 ML IV SCH (16:21)
[2019-08-16] MEDS: Cyclobenzaprine 10 MG Tab PO PRN (16:22)
[2019-08-16] MEDS: Aspirin 81 MG Tab.EC PO SCH (20:37)
[2019-08-16] MEDS: Sertraline 50 MG Tab PO SCH (20:38)
[2019-08-16] MEDS: Polyethylene Glycol 3350 Powder 17 GM Packet PO SCH (20:39)
[2019-08-16] MEDS ORDERED: Non-Formulary Medication 1 Each (Baclofen [Baclofen] 20 MG) PO SCH (21:00)
[2019-08-17] MEDS: Cyclobenzaprine 10 MG Tab PO PRN (04:01)
[2019-08-17] MEDS ORDERED: Levofloxacin/Dextrose 5%-Water 750 MG in Premix Bag 1 BAG IV ONE (05:00)
[2019-08-17] MEDS: Levofloxacin/Dextrose 5%-Water 750 MG in Premix Bag 1 BAG IV SCH (05:26)
[2019-08-17] MEDS: Levothyroxine 100 MCG Tab PO SCH (05:27)
[2019-08-17] MEDS ORDERED: Levothyroxine 100 MCG Tab PO SCH (06:00)
[2019-08-17] MEDS: guaiFENesin/Dextromethorphan 100-10 MG/5 ML Soln 5 ML Cup PO SCH ×3 (06:30→20:46)
[2019-08-17] MEDS: Albuterol/Ipratropium 3.0-0.5 MG/3 ML Neb Soln NEB SCH ×4 (08:54→20:59)
[2019-08-17] MEDS ORDERED: Enoxaparin 40 MG/0.4 ML Syringe SUBCUT SCH (09:00)
[2019-08-17] MEDS ORDERED: Metoprolol Succinate 25 MG Tab.ER PO SCH (09:00)
[2019-08-17] MEDS ORDERED: ENALAPRIL 10 MG PO SCH (09:00)
[2019-08-17] MEDS: Lactated Ringers 1,000 ML IV SCH (09:16)
[2019-08-17] MEDS ORDERED: ALBUTEROL INH PRN (09:35)
[2019-08-17] MEDS: Baclofen 10 MG Tab PO SCH ×3 (09:48→20:48)
[2019-08-17] MEDS: Metoprolol Succinate 25 MG Tab.ER PO SCH (09:49)
[2019-08-17] MEDS: MORPHINE 100 MG PO SCH ×2 (09:50→20:47)
[2019-08-17] MEDS: Benazepril 10 MG Tab PO SCH (09:51)
[2019-08-17] MEDS: Pantoprazole 40 MG Tab.CR PO SCH (09:52)
[2019-08-17] MEDS: Multivitamins,Therapeutic Tab PO SCH (09:52)
[2019-08-17] MEDS: Tamsulosin 0.4 MG Cap.ER PO SCH (09:52)
[2019-08-17] MEDS: Enoxaparin 40 MG/0.4 ML Syringe SUBCUT SCH (09:54)
[2019-08-17] MEDS: SALMETEROL IH SCH ×2 (11:34→20:59)
[2019-08-17] MEDS: FLUTICASONE IH SCH ×2 (11:34→20:59)
[2019-08-17] MEDS ORDERED: Benzocaine/Cetylpyridinium/Menthol Lozenge MUCMEM PRN (12:19)
[2019-08-17] MEDS: Acetaminophen 325 MG Tab PO PRN (12:28)
--- NOTE | 2019-08-17 18:28 | PCM.PN ---
- General Info Date of Service: 08/17/19 - Patient Data Vitals - Most Recent: Last Vital Signs Temp 97.9 F 08/17/19 15:31 Pulse 79 08/17/19 15:31 Resp 20 08/17/19 15:31 BP 130/72 08/17/19 15:31 Pulse Ox 95 08/17/19 17:44 Weight - Most Recent: 122.787 kg I&O - Last 24 Hours: Intake & Output 08/17/19 08/17/19 08/17/19 06:59 14:59 22:59 Intake Total 2200 959 Output Total 2200 1400 Balance 0 -441 Lab Results Last 24 Hours: Laboratory Results - last 24 hr 08/16/19 08/16/19 08/17/19 Range/Units 02:11 11:20 05:20 WBC 7.48 (4.23-9.07) K/mm3 RBC 3.78 L (4.63-6.08) M/mm3 Hgb 9.9 L D (13.7-17.5) gm/dl Hct 33.9 L (40.1-51.0) % MCV 89.7 (79.0-92.2) fl MCH 26.2 (25.7-32.2) pg MCHC 29.2 L (32.2-35.5) g/dl RDW Std Deviation 47.2 H (35.1-43.9) fL Plt Count 271 D (163-337) K/mm3 MPV 10.1 (9.4-12.3) fl Neut % (Auto) 70.3 H (34.0-67.9) % Lymph % (Auto) 19.8 L (21.8-53.1) % [place] % (Auto) 7.5 (5.3-12.2) % Eos % (Auto) 2.0 (0.8-7.0) Baso % (Auto) 0.3 (0.1-1.2) % Neut # (Auto) 5.26 (1.78-5.38) K/mm3 Lymph # (Auto) 1.48 (1.32-3.57) K/mm3 [place] # (Auto) 0.56 (0.30-0.82) K/mm3 Eos # (Auto) 0.15 (0.04-0.54) K/mm3 Baso # (Auto) 0.02 (0.01-0.08) K/mm3 Manual Slide Review Abnormal smear Sodium (136-145) mEq/L Potassium (3.5-5.1) mEq/L Chloride (98-107) mEq/L Carbon Dioxide (21-32) mEq/L Anion Gap (5-15) BUN (7-18) mg/dL Creatinine (0.7-1.3) mg/dL Est Cr Clr Drug Dosing mL/min Estimated GFR (MDRD) (>60) mL/min BUN/Creatinine Ratio (14-18) Glucose (80-115) mg/dL Calcium (8.5-10.1) mg/dL Phosphorus (2.6-4.7) mg/dL Magnesium (1.8-2.4) mg/dl Total Bilirubin (0.2-1.0) mg/dL AST (15-37) U/L ALT (16-63) U/L Alkaline Phosphatase (46-116) U/L Total Protein (6.4-8.2) g/dl Albumin (3.4-5.0) g/dl Globulin gm/dL Albumin/Globulin Ratio (1-2) Procalcitonin <0.05 (<0.10) ng/mL Adenovirus (PCR) Not detected (Not Detected) B. pertussis DNA (PCR) Not detected (Not Detected) B.parapertussis DNA PCR Not detected (Not Detected) C. pneumoniae DNA (PCR) Not detected (Not Detected) Coronavirus (PCR) Not detected (Not Detected) Human Metapneumovir PCR Not detected (Not Detected) Influenza A (RT-PCR) Not detected (Not Detected) Influenza B (RT-PCR) Not detected (Not Detected) M. pneumoniae (PCR) Not detected (Not Detected) Parainfluen 1,2,3,4 PCR Not detected (Not Detected) RSV (PCR) Not detected (Not Detected) Entero/Rhino (PCR) Not detected (Not Detected) 08/17/19 Range/Units 05:20 WBC (4.23-9.07) K/mm3 RBC (4.63-6.08) M/mm3 Hgb (13.7-17.5) gm/dl Hct (40.1-51.0) % MCV (79.0-92.2) fl MCH (25.7-32.2) pg MCHC (32.2-35.5) g/dl RDW Std Deviation (35.1-43.9) fL Plt Count (163-337) K/mm3 MPV (9.4-12.3) fl Neut % (Auto) (34.0-67.9) % Lymph % (Auto) (21.8-53.1) % [place] % (Auto) (5.3-12.2) % Eos % (Auto) (0.8-7.0) Baso % (Auto) (0.1-1.2) % Neut # (Auto) (1.78-5.38) K/mm3 Lymph # (Auto) (1.32-3.57) K/mm3 [place] # (Auto) (0.30-0.82) K/mm3 Eos # (Auto) (0.04-0.54) K/mm3 Baso # (Auto) (0.01-0.08) K/mm3 Manual Slide Review Sodium 137 (136-145) mEq/L Potassium 3.9 (3.5-5.1) mEq/L Chloride 102 (98-107) mEq/L Carbon Dioxide 28 (21-32) mEq/L Anion Gap 10.9 (5-15) BUN 15 (7-18) mg/dL Creatinine 0.9 (0.7-1.3) mg/dL Est Cr Clr Drug Dosing 85.62 mL/min Estimated GFR (MDRD) > 60 (>60) mL/min BUN/Creatinine Ratio 16.7 (14-18) Glucose 227 H (80-115) mg/dL Calcium 8.1 L (8.5-10.1) mg/dL Phosphorus 4.5 (2.6-4.7) mg/dL Magnesium 1.9 (1.8-2.4) mg/dl Total Bilirubin 0.4 (0.2-1.0) mg/dL AST 19 (15-37) U/L ALT 21 (16-63) U/L Alkaline Phosphatase 92 (46-116) U/L Total Protein 6.3 L (6.4-8.2) g/dl Albumin 2.7 L (3.4-5.0) g/dl Globulin 3.6 gm/dL Albumin/Globulin Ratio 0.8 L (1-2) Procalcitonin (<0.10) ng/mL Adenovirus (PCR) (Not Detected) B. pertussis DNA (PCR) (Not Detected) B.parapertussis DNA PCR (Not Detected) C. pneumoniae DNA (PCR) (Not Detected) Coronavirus (PCR) (Not Detected) Human Metapneumovir PCR (Not Detected) Influenza A (RT-PCR) (Not Detected) Influenza B (RT-PCR) (Not Detected) M. pneumoniae (PCR) (Not Detected) Parainfluen 1,2,3,4 PCR (Not Detected) RSV (PCR) (Not Detected) Entero/Rhino (PCR) (Not Detected) Luciano Results Last 24 Hours: Microbiology 08/17/19 10:35 Gram Stain - Final Sputum - Expectorated 08/16/19 15:03 Streptococcus pneumoniae Antigen (M - Final Urine 08/16/19 02:49 Aerobic Blood Culture - Preliminary Blood - Venous - Lab Draw NO GROWTH AFTER 1 DAY Anaerobic Blood Culture - Preliminary NO GROWTH AFTER 1 DAY 08/16/19 02:39 Aerobic Blood Culture - Preliminary Blood - Venous NO GROWTH AFTER 1 DAY Anaerobic Blood Culture - Preliminary NO GROWTH AFTER 1 DAY Med Orders - Current: Current Medications Acetaminophen (Tylenol) 650 mg PO Q4H PRN PRN Reason: Pain (Mild 1-3)/fever Last Admin: 08/17/19 12:28 Dose: 650 mg Albuterol/Ipratropium (Duoneb 3.0-0.5 Mg/3 Ml) 3 ml NEB QID [facility] Last Admin: 08/17/19 17:44 Dose: 3 ml Aspirin (Halfprin) 81 mg PO BEDTIME [facility] Last Admin: 08/16/19 20:37 Dose: 81 mg Baclofen (Lioresal) 20 mg PO TID [facility] Last Admin: 08/17/19 14:56 Dose: 20 mg Benazepril HCl (Lotensin) 10 mg PO DAILY [facility] Last Admin: 08/17/19 09:51 Dose: 10 mg Benzocaine/Menthol (Cepacol Sore Throat) 1 lozenge MUCMEM Q2H PRN PRN Reason: Sore Throat Cyclobenzaprine HCl (Flexeril) 10 mg PO TID PRN PRN Reason: Muscle Spasm Last Admin: 08/17/19 04:01 Dose: 10 mg Enoxaparin Sodium (Lovenox) 40 mg SUBCUT DAILY [facility] Last Admin: 08/17/19 09:54 Dose: 40 mg Guaifenesin/Phenylephrine HCl (Robitussin Dm) 10 ml PO TID@0700,1400,2100 [facility] Last Admin: 08/17/19 14:55 Dose: 10 ml Levofloxacin/Dextrose 750 mg/ (Premix) 150 mls @ 100 mls/hr IV Q24H [facility] Last Admin: 08/17/19 05:26 Dose: 100 mls/hr Levothyroxine Sodium (Synthroid) 100 mcg PO ACBREAKFAST [facility] Last Admin: 08/17/19 05:27 Dose: 100 mcg Metoprolol Succinate (Toprol Xl) 12.5 mg PO DAILY [facility] Last Admin: 08/17/19 09:49 Dose: 12.5 mg Morphine Sulfate (Ms Contin) 100 mg PO BID [facility] Last Admin: 08/17/19 09:50 Dose: 100 mg Multivitamins (Thera) 1 each PO DAILY [facility] Last Admin: 08/17/19 09:52 Dose: 1 each Fluticasone/Salmeterol 250mcg/50mcg Ptom 1 inh IH BID [facility] Last Admin: 08/17/19 11:34 Dose: 1 inh Albuterol 90 Mcg/Actuation Inhaler Ptom 0 each INH Q4H PRN PRN Reason: SHORTNESS OF BREATH Ondansetron HCl (Zofran) 4 mg IV Q6H PRN PRN Reason: Nausea/Vomiting Pantoprazole Sodium (Protonix) 40 mg PO DAILY [facility] Last Admin: 08/17/19 09:52 Dose: 40 mg Polyethylene Glycol (Miralax) 17 gm PO BEDTIME [facility] Last Admin: 08/16/19 20:39 Dose: 17 gm Sertraline HCl (Zoloft) 50 mg PO BEDTIME [facility] Last Admin: 08/16/19 20:38 Dose: 50 mg Tamsulosin HCl (Flomax) 0.4 mg PO DAILY [facility] Last Admin: 08/17/19 09:52 Dose: 0.4 mg Discontinued Medications Acetaminophen (Tylenol) 650 mg PO NOW ONE Stop: 08/16/19 02:18 Last Admin: 08/16/19 02:24 Dose: 650 mg Acetaminophen (Tylenol) 650 mg PO Q4H PRN PRN Reason: Pain Aspirin (Halfprin) 81 mg PO DAILY [facility] Last Admin: 08/16/19 17:55 Dose: Not Given Enoxaparin Sodium (Lovenox) 40 mg SUBCUT DAILY [facility] Sodium Chloride (Normal Saline) 1,000 mls @ 150 mls/hr IV ASDIRECTED [facility] Last Admin: 08/16/19 04:08 Dose: 150 mls/hr Levofloxacin/Dextrose 750 mg/ (Premix) 150 mls @ 100 mls/hr IV ONETIME ONE Stop: 08/17/19 06:29 Lactated Ringer's (Ringers, Lactated) 1,000 mls @ 75 mls/hr IV Q13H [facility] Stop: 08/17/19 17:59 Last Admin: 08/17/19 09:16 Dose: 75 mls/hr Insulin Human Lispro (Humalog) 0 unit SUBCUT QIDACANDBED [facility]; Protocol Levofloxacin (Levaquin) 750 mg PO ONETIME STA Stop: 08/16/19 05:31 Last Admin: 08/16/19 05:38 Dose: 750 mg Levothyroxine Sodium (Synthroid) 100 mcg PO ACBREAKFAST [facility] Metoprolol Succinate (Toprol Xl) 25 mg PO DAILY [facility] Last Admin: 08/16/19 11:11 Dose: 25 mg Metoprolol Succinate (Toprol Xl) 12.5 mg PO DAILY [facility] Morphine Sulfate (Ms Contin) 15 mg PO BID [facility] Last Admin: 08/16/19 11:06 Dose: 15 mg Non-Formulary Medication (Fluticasone Propion/Salmeterol) 1 each IH BID [facility] Last Admin: 08/16/19 17:55 Dose: Not Given Non-Formulary Medication (Insulin Aspart) 1 dose SQ ASDIRECTED [facility] Non-Formulary Medication (Baclofen [Baclofen]) 20 mg PO TID [facility] Polyethylene Glycol (Miralax) 17 gm PO DAILY [facility] Last Admin: 08/16/19 11:10 Dose: Not Given Sepsis Event Note - Evaluation Sepsis Screening Result: No Definite Risk - Focused Exam Vital Signs: Vital Signs Temp Pulse Resp BP Pulse Ox Pulse Ox Pulse Ox 08/17/19 17:44 95 08/17/19 15:31 97.9 F 79 20 130/72 93 L 08/17/19 14:22 94 L 08/17/19 13:07 68 93 L 08/17/19 12:31 69 95 08/17/19 12:02 98.1 F 73 16 123/55 L 94 L 08/17/19 11:34 100 08/17/19 09:51 153/99 H 08/17/19 09:49 75 153/99 H 08/17/19 09:48 75 153/99 H 98 08/17/19 09:10 94 L 08/17/19 08:55 96 08/17/19 07:55 97.5 F 58 L 16 90/46 L 96 Date Exam was Performed: 08/17/19 Time Exam was Performed: 18:28 - My Orders Last 24 Hours: My Active Orders 08/17/19 09:30 Fluticasone/Salmeterol 1 inh IH BID 08/17/19 12:19 Benzocaine/Cetylpyrd/Menthol [Cepacol Sore Throat] 1 lozenge MUCMEM Q2H PRN 08/17/19 14:31 Enema [RC] ASDIRECTED 08/17/19 15:21 Communication Order [RC] ASDIRECTED - Plan Plan:: Pneumonia Leukocytosis Elevated d-dimer Mixed acid base balance disorder Hypoxemia Former smoker COPD Hypertension Reports chills, cough, headache starting on 08/15/19 around 2330 Denies fever Sepsis screen: No fever, Tachycardia, WBC <12; RR >20; No Organ dysfunction - does not meet criteria Influenza negative ABG shows mixed respiratory acidosis and metabolic alkalosis CT scan shows diffuse patchy areas of increased density within left upper and lower lung Prior CT scan from 03/2019 showed mass in left lung - was transferred to [facility] for pulmonology Given PO Levaquin in ED Requiring oxygen Lactic acid WNL IV fluids given in ED PLAN -Switch to IV 750 mg Levaquin -Sputum culture -Mycoplasma, MRSA, Strep pneumo, VRP - ordered -IS/Acapella/RT consult -Scheduled Duonebs -Blood cultures pending -Scheduled robitussin DM -IV fluids as ordered -Obtain pulmonology records -Procalcitonin ordered -Droplet isolation -O2 as needed -Home medications as ordered -AM Labs -Ambulate Diabetic neuropathy Diabetes mellitus; unknown A1C Insulin pump in place Obesity Has insulin pump and monitor Blood sugars have been stable per patient report. Glucose 109 in ED Reports close follow-up by PCP PLAN -Obtain A1C -Continue insulin pump -Hold PO diabetic meds -Monitor blood sugars Anxiety Hypothyroidism Chronic constipation HLD (hyperlipidemia) Arthritis Plan -Home medications -PRN constipation meds if indicated -Pharmacy/nursing to verify home medications as there are some discrepancies Hx of cervical spine surgery History of lumbar spinal fusion Significant back pain Reports significant "shaking" when not on home baclofen Plan -Continue home medications DVT prophylaxis: Lovenox Code status: Full code (confirmed with patient) PCP: Dr. Silva Disposition: Admitted to medical floor for management of hypoxia and pneumonia. Patient was offered transfer in ED as floor was on diversion. Elected to stay until bed opened up the next morning and refused transfer. Expected length of stay: 3-4 total days
[2019-08-17] MEDS: Polyethylene Glycol 3350 Powder 17 GM Packet PO SCH (20:47)
[2019-08-17] MEDS: Aspirin 81 MG Tab.EC PO SCH (20:48)
[2019-08-17] MEDS: Sertraline 50 MG Tab PO SCH (20:48)
[2019-08-18] MEDS: Levothyroxine 100 MCG Tab PO SCH (05:42)
[2019-08-18] MEDS: Levofloxacin/Dextrose 5%-Water 750 MG in Premix Bag 1 BAG IV SCH (05:42)
[2019-08-18] MEDS: guaiFENesin/Dextromethorphan 100-10 MG/5 ML Soln 5 ML Cup PO SCH ×3 (06:26→20:02)
[2019-08-18] MEDS: Benazepril 10 MG Tab PO SCH (09:31)
[2019-08-18] MEDS: Baclofen 10 MG Tab PO SCH ×3 (09:32→20:00)
[2019-08-18] MEDS: Pantoprazole 40 MG Tab.CR PO SCH (09:33)
[2019-08-18] MEDS: MORPHINE 100 MG PO SCH ×2 (09:33→20:01)
[2019-08-18] MEDS: Multivitamins,Therapeutic Tab PO SCH (09:33)
[2019-08-18] MEDS: Tamsulosin 0.4 MG Cap.ER PO SCH (09:34)
[2019-08-18] MEDS: Metoprolol Succinate 25 MG Tab.ER PO SCH (09:34)
[2019-08-18] MEDS: Enoxaparin 40 MG/0.4 ML Syringe SUBCUT SCH (09:35)
[2019-08-18] MEDS: Albuterol/Ipratropium 3.0-0.5 MG/3 ML Neb Soln NEB SCH ×2 (10:34→14:09)
[2019-08-18] MEDS: SALMETEROL IH SCH ×2 (10:35→20:49)
[2019-08-18] MEDS: FLUTICASONE IH SCH ×2 (10:35→20:49)
[2019-08-18] MEDS: Polyethylene Glycol 3350 Powder 17 GM Packet PO SCH (19:59)
[2019-08-18] MEDS: Sertraline 50 MG Tab PO SCH (20:00)
[2019-08-18] MEDS: Aspirin 81 MG Tab.EC PO SCH (20:01)
[2019-08-19] MEDS: Levothyroxine 100 MCG Tab PO SCH (06:16)
[2019-08-19] MEDS: Levofloxacin/Dextrose 5%-Water 750 MG in Premix Bag 1 BAG IV SCH (06:17)
[2019-08-19] MEDS: guaiFENesin/Dextromethorphan 100-10 MG/5 ML Soln 5 ML Cup PO SCH ×2 (06:17→14:48)
[2019-08-19] MEDS: Acetaminophen 325 MG Tab PO PRN (06:33)
[2019-08-19] MEDS: SALMETEROL IH SCH (08:44)
[2019-08-19] MEDS: FLUTICASONE IH SCH (08:44)
[2019-08-19] MEDS: Tamsulosin 0.4 MG Cap.ER PO SCH (08:54)
[2019-08-19] MEDS: Multivitamins,Therapeutic Tab PO SCH (08:54)
[2019-08-19] MEDS: Baclofen 10 MG Tab PO SCH ×2 (08:55→14:47)
[2019-08-19] MEDS: Pantoprazole 40 MG Tab.CR PO SCH (08:55)
[2019-08-19] MEDS: MORPHINE 100 MG PO SCH (08:56)
[2019-08-19] MEDS: Benazepril 10 MG Tab PO SCH (08:57)
[2019-08-19] MEDS: Metoprolol Succinate 25 MG Tab.ER PO SCH (08:58)
[2019-08-19] MEDS: Enoxaparin 40 MG/0.4 ML Syringe SUBCUT SCH (08:59)
[2019-08-19 13:35] VITALS: BP 107/87; PULSE 84
--- NOTE | 2019-08-19 14:52 | PCM.DCSUM1 ---
Discharge Summary - Discharge Data Discharge Date: 08/19/19 Discharge Disposition: Home, Self-Care 01 Condition: Good - Referral to Home Health Primary Care Physician: Nate Silva MD - Discharge Diagnosis/Problem(s) (1) Anxiety SNOMED Code(s): 81580388 ICD Code: F41.9 - ANXIETY DISORDER, UNSPECIFIED Status: Chronic Priority : Low Current Visit: No (2) COPD (chronic obstructive pulmonary disease) SNOMED Code(s): 01844091 ICD Code: J44.9 - CHRONIC OBSTRUCTIVE PULMONARY DISEASE, UNSPECIFIED Status : Chronic Priority: Medium Current Visit: Yes Qualifiers: COPD type: unspecified COPD Qualified Code(s): J44.9 - Chronic obstructive pulmonary disease, unspecified (3) Diabetes mellitus SNOMED Code(s): 67177622 ICD Code: E11.9 - TYPE 2 DIABETES MELLITUS WITHOUT COMPLICATIONS Status: Acute Priority: High Current Visit: Yes Qualifiers: Diabetes mellitus type: type 2 Diabetes mellitus snf insulin use: without snf use Diabetes mellitus complication status: with other specified complication Qualified Code(s): E11.69 - Type 2 diabetes mellitus with other specified complication (4) Diabetic neuropathy SNOMED Code(s): 013555408, 894678966 ICD Code: E11.40 - TYPE 2 DIABETES MELLITUS WITH DIABETIC NEUROPATHY, UNSP Status: Chronic Priority: Medium Current Visit: No Qualifiers: Diabetes mellitus type: other specified (including RENEE) Diabetes mellitus complication detail: with other neurological complication Qualified Code(s): E13.49 - Other specified diabetes mellitus with other diabetic neurological complication (5) Former smoker SNOMED Code(s): 6352718 ICD Code: Z87.891 - PERSONAL HISTORY OF NICOTINE DEPENDENCE Status: Chronic Priority: Medium Current Visit: Yes (6) HLD (hyperlipidemia) SNOMED Code(s): 87511379 ICD Code: E78.5 - HYPERLIPIDEMIA, UNSPECIFIED Status: Chronic Priority: Low Current Visit: No Qualifiers: Hyperlipidemia type: unspecified Qualified Code(s): E78.5 - Hyperlipidemia , unspecified (7) Hypertension SNOMED Code(s): 98441828 ICD Code: I10 - ESSENTIAL (PRIMARY) HYPERTENSION Status: Acute Priority: High Current Visit: Yes Qualifiers: Hypertension type: unspecified Qualified Code(s): I10 - Essential (primary ) hypertension (8) Hypothyroidism SNOMED Code(s): 54348739 ICD Code: E03.9 - HYPOTHYROIDISM, UNSPECIFIED Status: Chronic Priority: Low Current Visit: No Qualifiers: Hypothyroidism type: unspecified Qualified Code(s): E03.9 - Hypothyroidism , unspecified (9) Hypoxemia SNOMED Code(s): 120555313 ICD Code: R09.02 - HYPOXEMIA Status: Acute Priority: High Current Visit : Yes (10) Insulin pump in place SNOMED Code(s): 811953256 ICD Code: Z96.41 - PRESENCE OF INSULIN PUMP (EXTERNAL) (INTERNAL) Status: Chronic Priority: Medium Current Visit: Yes (11) Leukocytosis SNOMED Code(s): 847132123, 577025791 ICD Code: D72.829 - ELEVATED WHITE BLOOD CELL COUNT, UNSPECIFIED Status: Acute Priority: High Current Visit: Yes Qualifiers: Leukocytosis type: unspecified Qualified Code(s): D72.829 - Elevated white blood cell count, unspecified (12) Mass of left lung SNOMED Code(s): 261358255 ICD Code: R91.8 - OTHER NONSPECIFIC ABNORMAL FINDING OF LUNG FIELD Status: Acute Current Visit: No (13) Obesity SNOMED Code(s): 621378388, 444088648 ICD Code: E66.9 - OBESITY, UNSPECIFIED Status: Chronic Priority: Low Current Visit: No Qualifiers: Obesity type: unspecified obesity type Obesity classification: unspecified obesity classification Serious obesity comorbidity presence: unspecified whether serious comorbidity present Qualified Code(s): E66.9 - Obesity, unspecified (14) Pneumonia SNOMED Code(s): 033600961 ICD Code: J18.9 - PNEUMONIA, UNSPECIFIED ORGANISM Status: Acute Priority : High Current Visit: Yes Qualifiers: Pneumonia type: due to unspecified organism Laterality: left Lung location: unspecified part of lung Qualified Code(s): J18.9 - Pneumonia, unspecified organism - Patient Summary/Data Consults: Consultations 08/16/19 09:10 Consult to Spiritual Care [CONS] Routine Respiratory Care Assess and Treatment [CONS] Routine - Discharge Plan *PRESCRIPTION DRUG MONITORING PROGRAM REVIEWED*: Not Applicable *COPY OF PRESCRIPTION DRUG MONITORING REPORT IN PATIENT SIM: Not Applicable Prescriptions/Med Rec: Dextromethorphan/guaiFENesin [Robitussin DM] 10 ml PO TID@0700,1400,2100 #9 cup Home Medications: Home Meds Diazepam [Valium] 10 mg PO Q8HR PRN 03/09/16 [History] Morphine [MS Contin] 120 mg PO BID 03/09/16 [History] Insulin Aspart [NovoLOG] 1 dose SQ ASDIRECTED 09/14/16 [History] Albuterol Sulfate [Proair Respiclick] 90 mcg IH Q6HR PRN 06/17/19 [History] Aspirin [Ecotrin EC] 81 mg PO DAILY 06/17/19 [History] Calcium Carbonate/Vitamin D3 [Calcium 600 + Vit D 400 Softgl] 600 mg PO DAILY [History] Empagliflozin [Jardiance] 10 mg PO DAILY 06/17/19 [History] Fluticasone Propion/Salmeterol [Fluticasone-Salmeterol 250-50] 1 each IH BID [History] Multivitamin [Multivitamins] 1 tab PO DAILY 06/17/19 [History] Omeprazole 20 mg PO DAILY 06/17/19 [History] Orphenadrine [Norflex] 100 mg PO Q12HR PRN 06/17/19 [History] Sertraline [Zoloft] 50 mg PO BEDTIME 06/17/19 [History] Tamsulosin [Flomax] 0.4 mg PO DAILY 06/17/19 [History] atorvaSTATin [Lipitor] 40 mg PO DAILY 06/17/19 [History] metFORMIN [Glucophage XR] 500 mg PO BID 06/17/19 [History] polyethylene glycoL 3350 [MiraLAX] 17 gm PO DAILY 06/17/19 [History] Baclofen 20 mg PO TID 08/16/19 [History] Benazepril [Lotensin] 10 mg PO DAILY 08/16/19 [History] Benzonatate 100 mg PO TID PRN 08/16/19 [History] Cyclobenzaprine [Flexeril] 10 mg PO TID PRN 08/16/19 [History] Levothyroxine [Synthroid] 100 mcg PO ACBREAKFAST 08/16/19 [History] Metoprolol Succinate 12.5 mg PO DAILY 08/16/19 [History] Fluticasone/Salmeterol [Advair 250-50 Diskus] 1 inh IH BID 08/17/19 [History] Dextromethorphan/guaiFENesin [Robitussin DM] 10 ml PO TID@0700,1400,2100 #9 cup 08/19/19 [Rx] Oxygen Therapy Mode: Room Air Patient Handouts: Chronic Obstructive Pulmonary Disease, [id number], Sepsis, Adult, Community-Acquired Pneumonia, Adult, [id number] Referrals: Nate Silva MD [Primary Care Provider] - () - General Info Date of Service: 08/19/19 - Patient Data Vitals - Most Recent: Last Vital Signs Temp 98.2 F 08/19/19 11:40 Pulse 84 08/19/19 11:41 Resp 18 08/19/19 01:48 BP 107/87 08/19/19 11:40 Pulse Ox 95 08/19/19 11:41 Weight - Most Recent: 121.245 kg I&O - Last 24 hours: Intake & Output 08/18/19 08/19/19 08/19/19 22:59 06:59 14:59 Intake Total 400 1150 Output Total 2700 Balance 400 -1550 BRISA Results - Last 24 hrs: Microbiology 08/17/19 10:35 Gram Stain - Final Sputum - Expectorated Sputum Culture - Final NORMAL RESPIRATORY KWESI 2 DAYS 08/16/19 02:49 Aerobic Blood Culture - Preliminary Blood - Venous - Lab Draw NO GROWTH AFTER 3 DAYS Anaerobic Blood Culture - Preliminary NO GROWTH AFTER 3 DAYS 08/16/19 02:39 Aerobic Blood Culture - Preliminary Blood - Venous NO GROWTH AFTER 3 DAYS Anaerobic Blood Culture - Preliminary NO GROWTH AFTER 3 DAYS Med Orders - Current: Current Medications Acetaminophen (Tylenol) 650 mg PO Q4H PRN PRN Reason: Pain (Mild 1-3)/fever Last Admin: 08/19/19 06:33 Dose: 650 mg Aspirin (Halfprin) 81 mg PO BEDTIME [facility] Last Admin: 08/18/19 20:01 Dose: Not Given Baclofen (Lioresal) 20 mg PO TID [facility] Last Admin: 08/19/19 14:47 Dose: 20 mg Benazepril HCl (Lotensin) 10 mg PO DAILY [facility] Last Admin: 08/19/19 08:57 Dose: 10 mg Benzocaine/Menthol (Cepacol Sore Throat) 1 lozenge MUCMEM Q2H PRN PRN Reason: Sore Throat Last Admin: 08/18/19 01:54 Dose: 1 lozenge Cyclobenzaprine HCl (Flexeril) 10 mg PO TID PRN PRN Reason: Muscle Spasm Last Admin: 08/17/19 04:01 Dose: 10 mg Enoxaparin Sodium (Lovenox) 40 mg SUBCUT DAILY [facility] Last Admin: 08/19/19 08:59 Dose: 40 mg Guaifenesin/Phenylephrine HCl (Robitussin Dm) 10 ml PO TID@0700,1400,2100 [facility] Last Admin: 08/19/19 14:48 Dose: 10 ml Levofloxacin (Levaquin) 750 mg PO ONETIME ONE Stop: 08/20/19 06:01 Levothyroxine Sodium (Synthroid) 100 mcg PO ACBREAKFAST [facility] Last Admin: 08/19/19 06:16 Dose: 100 mcg Metoprolol Succinate (Toprol Xl) 12.5 mg PO DAILY [facility] Last Admin: 08/19/19 08:58 Dose: 12.5 mg Morphine Sulfate (Ms Contin) 100 mg PO BID [facility] Last Admin: 08/19/19 08:56 Dose: 100 mg Multivitamins (Thera) 1 each PO DAILY [facility] Last Admin: 08/19/19 08:54 Dose: 1 each Fluticasone/Salmeterol 250mcg/50mcg Ptom 1 inh IH BID [facility] Last Admin: 08/19/19 08:44 Dose: 1 inh Albuterol 90 Mcg/Actuation Inhaler Ptom 0 each INH Q4H PRN PRN Reason: SHORTNESS OF BREATH Ondansetron HCl (Zofran) 4 mg IV Q6H PRN PRN Reason: Nausea/Vomiting Pantoprazole Sodium (Protonix) 40 mg PO DAILY [facility] Last Admin: 08/19/19 08:55 Dose: 40 mg Polyethylene Glycol (Miralax) 17 gm PO BEDTIME [facility] Last Admin: 08/18/19 19:59 Dose: 17 gm Sertraline HCl (Zoloft) 50 mg PO BEDTIME [facility] Last Admin: 08/18/19 20:00 Dose: 50 mg Tamsulosin HCl (Flomax) 0.4 mg PO DAILY [facility] Last Admin: 08/19/19 08:54 Dose: 0.4 mg Discontinued Medications Acetaminophen (Tylenol) 650 mg PO NOW ONE Stop: 08/16/19 02:18 Last Admin: 08/16/19 02:24 Dose: 650 mg Acetaminophen (Tylenol) 650 mg PO Q4H PRN PRN Reason: Pain Albuterol/Ipratropium (Duoneb 3.0-0.5 Mg/3 Ml) 3 ml NEB QID [facility] Last Admin: 08/18/19 14:09 Dose: Not Given Aspirin (Halfprin) 81 mg PO DAILY [facility] Last Admin: 08/16/19 17:55 Dose: Not Given Enoxaparin Sodium (Lovenox) 40 mg SUBCUT DAILY [facility] Sodium Chloride (Normal Saline) 1,000 mls @ 150 mls/hr IV ASDIRECTED [facility] Last Admin: 08/16/19 04:08 Dose: 150 mls/hr Levofloxacin/Dextrose 750 mg/ (Premix) 150 mls @ 100 mls/hr IV ONETIME ONE Stop: 08/17/19 06:29 Levofloxacin/Dextrose 750 mg/ (Premix) 150 mls @ 100 mls/hr IV Q24H [facility] Last Admin: 08/19/19 06:17 Dose: 100 mls/hr Lactated Ringer's (Ringers, Lactated) 1,000 mls @ 75 mls/hr IV Q13H [facility] Stop: 08/17/19 17:59 Last Admin: 08/17/19 09:16 Dose: 75 mls/hr Insulin Human Lispro (Humalog) 0 unit SUBCUT QIDACANDBED [facility]; Protocol Levofloxacin (Levaquin) 750 mg PO ONETIME STA Stop: 08/16/19 05:31 Last Admin: 08/16/19 05:38 Dose: 750 mg Levothyroxine Sodium (Synthroid) 100 mcg PO ACBREAKFAST [facility] Metoprolol Succinate (Toprol Xl) 25 mg PO DAILY [facility] Last Admin: 08/16/19 11:11 Dose: 25 mg Metoprolol Succinate (Toprol Xl) 12.5 mg PO DAILY [facility] Morphine Sulfate (Ms Contin) 15 mg PO BID [facility] Last Admin: 08/16/19 11:06 Dose: 15 mg Non-Formulary Medication (Fluticasone Propion/Salmeterol) 1 each IH BID [facility] Last Admin: 08/16/19 17:55 Dose: Not Given Non-Formulary Medication (Insulin Aspart) 1 dose SQ ASDIRECTED [facility] Non-Formulary Medication (Baclofen [Baclofen]) 20 mg PO TID [facility] Polyethylene Glycol (Miralax) 17 gm PO DAILY [facility] Last Admin: 08/16/19 11:10 Dose: Not Given
--- NOTE | 2019-08-19 14:52 | PCM.PN ---
- General Info Date of Service: 08/18/19 - Patient Data Vitals - Most Recent: Last Vital Signs Temp 98.2 F 08/19/19 11:40 Pulse 84 08/19/19 11:41 Resp 18 08/19/19 01:48 BP 107/87 08/19/19 11:40 Pulse Ox 95 08/19/19 11:41 Weight - Most Recent: 121.245 kg I&O - Last 24 Hours: Intake & Output 08/18/19 08/19/19 08/19/19 22:59 06:59 14:59 Intake Total 400 1150 Output Total 2700 Balance 400 -1550 Luciano Results Last 24 Hours: Microbiology 08/17/19 10:35 Gram Stain - Final Sputum - Expectorated Sputum Culture - Final NORMAL RESPIRATORY KWESI 2 DAYS 08/16/19 02:49 Aerobic Blood Culture - Preliminary Blood - Venous - Lab Draw NO GROWTH AFTER 3 DAYS Anaerobic Blood Culture - Preliminary NO GROWTH AFTER 3 DAYS 08/16/19 02:39 Aerobic Blood Culture - Preliminary Blood - Venous NO GROWTH AFTER 3 DAYS Anaerobic Blood Culture - Preliminary NO GROWTH AFTER 3 DAYS Med Orders - Current: Current Medications Acetaminophen (Tylenol) 650 mg PO Q4H PRN PRN Reason: Pain (Mild 1-3)/fever Last Admin: 08/19/19 06:33 Dose: 650 mg Aspirin (Halfprin) 81 mg PO BEDTIME [facility] Last Admin: 08/18/19 20:01 Dose: Not Given Baclofen (Lioresal) 20 mg PO TID [facility] Last Admin: 08/19/19 14:47 Dose: 20 mg Benazepril HCl (Lotensin) 10 mg PO DAILY [facility] Last Admin: 08/19/19 08:57 Dose: 10 mg Benzocaine/Menthol (Cepacol Sore Throat) 1 lozenge MUCMEM Q2H PRN PRN Reason: Sore Throat Last Admin: 08/18/19 01:54 Dose: 1 lozenge Cyclobenzaprine HCl (Flexeril) 10 mg PO TID PRN PRN Reason: Muscle Spasm Last Admin: 08/17/19 04:01 Dose: 10 mg Enoxaparin Sodium (Lovenox) 40 mg SUBCUT DAILY [facility] Last Admin: 08/19/19 08:59 Dose: 40 mg Guaifenesin/Phenylephrine HCl (Robitussin Dm) 10 ml PO TID@0700,1400,2100 [facility] Last Admin: 08/19/19 14:48 Dose: 10 ml Levofloxacin (Levaquin) 750 mg PO ONETIME ONE Stop: 08/20/19 06:01 Levothyroxine Sodium (Synthroid) 100 mcg PO ACBREAKFAST [facility] Last Admin: 08/19/19 06:16 Dose: 100 mcg Metoprolol Succinate (Toprol Xl) 12.5 mg PO DAILY [facility] Last Admin: 08/19/19 08:58 Dose: 12.5 mg Morphine Sulfate (Ms Contin) 100 mg PO BID [facility] Last Admin: 08/19/19 08:56 Dose: 100 mg Multivitamins (Thera) 1 each PO DAILY [facility] Last Admin: 08/19/19 08:54 Dose: 1 each Fluticasone/Salmeterol 250mcg/50mcg Ptom 1 inh IH BID [facility] Last Admin: 08/19/19 08:44 Dose: 1 inh Albuterol 90 Mcg/Actuation Inhaler Ptom 0 each INH Q4H PRN PRN Reason: SHORTNESS OF BREATH Ondansetron HCl (Zofran) 4 mg IV Q6H PRN PRN Reason: Nausea/Vomiting Pantoprazole Sodium (Protonix) 40 mg PO DAILY [facility] Last Admin: 08/19/19 08:55 Dose: 40 mg Polyethylene Glycol (Miralax) 17 gm PO BEDTIME [facility] Last Admin: 08/18/19 19:59 Dose: 17 gm Sertraline HCl (Zoloft) 50 mg PO BEDTIME [facility] Last Admin: 08/18/19 20:00 Dose: 50 mg Tamsulosin HCl (Flomax) 0.4 mg PO DAILY [facility] Last Admin: 08/19/19 08:54 Dose: 0.4 mg Discontinued Medications Acetaminophen (Tylenol) 650 mg PO NOW ONE Stop: 08/16/19 02:18 Last Admin: 08/16/19 02:24 Dose: 650 mg Acetaminophen (Tylenol) 650 mg PO Q4H PRN PRN Reason: Pain Albuterol/Ipratropium (Duoneb 3.0-0.5 Mg/3 Ml) 3 ml NEB QID [facility] Last Admin: 08/18/19 14:09 Dose: Not Given Aspirin (Halfprin) 81 mg PO DAILY [facility] Last Admin: 02/21/20 17:55 Dose: Not Given Enoxaparin Sodium (Lovenox) 40 mg SUBCUT DAILY [facility] Sodium Chloride (Normal Saline) 1,000 mls @ 150 mls/hr IV ASDIRECTED [facility] Last Admin: 08/16/19 04:08 Dose: 150 mls/hr Levofloxacin/Dextrose 750 mg/ (Premix) 150 mls @ 100 mls/hr IV ONETIME ONE Stop: 08/17/19 06:29 Levofloxacin/Dextrose 750 mg/ (Premix) 150 mls @ 100 mls/hr IV Q24H [facility] Last Admin: 08/19/19 06:17 Dose: 100 mls/hr Lactated Ringer's (Ringers, Lactated) 1,000 mls @ 75 mls/hr IV Q13H [facility] Stop: 08/17/19 17:59 Last Admin: 08/17/19 09:16 Dose: 75 mls/hr Insulin Human Lispro (Humalog) 0 unit SUBCUT QIDACANDBED [facility]; Protocol Levofloxacin (Levaquin) 750 mg PO ONETIME STA Stop: 08/16/19 05:31 Last Admin: 08/16/19 05:38 Dose: 750 mg Levothyroxine Sodium (Synthroid) 100 mcg PO ACBREAKFAST [facility] Metoprolol Succinate (Toprol Xl) 25 mg PO DAILY [facility] Last Admin: 08/16/19 11:11 Dose: 25 mg Metoprolol Succinate (Toprol Xl) 12.5 mg PO DAILY [facility] Morphine Sulfate (Ms Contin) 15 mg PO BID [facility] Last Admin: 08/16/19 11:06 Dose: 15 mg Non-Formulary Medication (Fluticasone Propion/Salmeterol) 1 each IH BID [facility] Last Admin: 08/16/19 17:55 Dose: Not Given Non-Formulary Medication (Insulin Aspart) 1 dose SQ ASDIRECTED [facility] Non-Formulary Medication (Baclofen [Baclofen]) 20 mg PO TID [facility] Polyethylene Glycol (Miralax) 17 gm PO DAILY [facility] Last Admin: 08/16/19 11:10 Dose: Not Given Sepsis Event Note - Evaluation Sepsis Screening Result: No Definite Risk - Focused Exam Vital Signs: Vital Signs Temp Pulse BP Pulse Ox Pulse Ox 08/19/19 11:41 84 95 08/19/19 11:40 98.2 F 81 107/87 96 08/19/19 09:00 96 08/19/19 08:58 72 /80 08/19/19 08:57 107/80 08/19/19 08:44 91 L 08/19/19 08:11 98.1 F 72 96 Date Exam was Performed: 08/19/19 Time Exam was Performed: 14:51 - Problem List & Annotations (1) Anxiety SNOMED Code(s): 57545337 Code(s): F41.9 - ANXIETY DISORDER, UNSPECIFIED Status: Chronic Priority: Low Current Visit: No (2) COPD (chronic obstructive pulmonary disease) SNOMED Code(s): 62789689 Code(s): J44.9 - CHRONIC OBSTRUCTIVE PULMONARY DISEASE, UNSPECIFIED Status : Chronic Priority: Medium Current Visit: Yes Qualifiers: COPD type: unspecified COPD Qualified Code(s): J44.9 - Chronic obstructive pulmonary disease, unspecified (3) Diabetes mellitus SNOMED Code(s): 79790121 Code(s): E11.9 - TYPE 2 DIABETES MELLITUS WITHOUT COMPLICATIONS Status: Acute Priority: High Current Visit: Yes Qualifiers: Diabetes mellitus type: type 2 Diabetes mellitus senior care insulin use: without emt intermediate use Diabetes mellitus complication status: with other specified complication Qualified Code(s): E11.69 - Type 2 diabetes mellitus with other specified complication (4) Diabetic neuropathy SNOMED Code(s): 394144971, 178141158 Code(s): E11.40 - TYPE 2 DIABETES MELLITUS WITH DIABETIC NEUROPATHY, UNSP Status: Chronic Priority: Medium Current Visit: No Qualifiers: Diabetes mellitus type: other specified (including RENEE) Diabetes mellitus complication detail: with other neurological complication Qualified Code(s): E13.49 - Other specified diabetes mellitus with other diabetic neurological complication (5) Former smoker SNOMED Code(s): 4762969 Code(s): Z87.891 - PERSONAL HISTORY OF NICOTINE DEPENDENCE Status: Chronic Priority: Medium Current Visit: Yes (6) HLD (hyperlipidemia) SNOMED Code(s): 16204502 Code(s): E78.5 - HYPERLIPIDEMIA, UNSPECIFIED Status: Chronic Priority: Low Current Visit: No Qualifiers: Hyperlipidemia type: unspecified Qualified Code(s): E78.5 - Hyperlipidemia , unspecified (7) Hypertension SNOMED Code(s): 26626566 Code(s): I10 - ESSENTIAL (PRIMARY) HYPERTENSION Status: Acute Priority: High Current Visit: Yes Qualifiers: Hypertension type: unspecified Qualified Code(s): I10 - Essential (primary ) hypertension (8) Hypothyroidism SNOMED Code(s): 59100251 Code(s): E03.9 - HYPOTHYROIDISM, UNSPECIFIED Status: Chronic Priority: Low Current Visit: No Qualifiers: Hypothyroidism type: unspecified Qualified Code(s): E03.9 - Hypothyroidism , unspecified (9) Hypoxemia SNOMED Code(s): 728839952 Code(s): R09.02 - HYPOXEMIA Status: Acute Priority: High Current Visit : Yes (10) Insulin pump in place SNOMED Code(s): 495607290 Code(s): Z96.41 - PRESENCE OF INSULIN PUMP (EXTERNAL) (INTERNAL) Status: Chronic Priority: Medium Current Visit: Yes (11) Leukocytosis SNOMED Code(s): 895020730, 171871786 Code(s): D72.829 - ELEVATED WHITE BLOOD CELL COUNT, UNSPECIFIED Status: Acute Priority: High Current Visit: Yes Qualifiers: Leukocytosis type: unspecified Qualified Code(s): D72.829 - Elevated white blood cell count, unspecified (12) Mass of left lung SNOMED Code(s): 250977289 Code(s): R91.8 - OTHER NONSPECIFIC ABNORMAL FINDING OF LUNG FIELD Status: Acute Current Visit: No (13) Obesity SNOMED Code(s): 785146961, 909136811 Code(s): E66.9 - OBESITY, UNSPECIFIED Status: Chronic Priority: Low Current Visit: No Qualifiers: Obesity type: unspecified obesity type Obesity classification: unspecified obesity classification Serious obesity comorbidity presence: unspecified whether serious comorbidity present Qualified Code(s): E66.9 - Obesity, unspecified (14) Pneumonia SNOMED Code(s): 733221148 Code(s): J18.9 - PNEUMONIA, UNSPECIFIED ORGANISM Status: Acute Priority: High Current Visit: Yes Qualifiers: Pneumonia type: due to unspecified organism Laterality: left Lung location: unspecified part of lung Qualified Code(s): J18.9 - Pneumonia, unspecified organism - My Orders Last 24 Hours: My Active Orders 08/19/19 14:50 Ready for Discharge [RC] PER UNIT ROUTINE 08/20/19 06:00 levoFLOXacin [Levaquin] 750 mg PO ONETIME ONE - Plan Plan:: Pneumonia Leukocytosis Elevated d-dimer Mixed acid base balance disorder Hypoxemia Former smoker COPD Hypertension Reports chills, cough, headache starting on 08/15/19 around 2330 Denies fever Sepsis screen: No fever, Tachycardia, WBC <12; RR >20; No Organ dysfunction - does not meet criteria Influenza negative ABG shows mixed respiratory acidosis and metabolic alkalosis CT scan shows diffuse patchy areas of increased density within left upper and lower lung Prior CT scan from 03/2019 showed mass in left lung - was transferred to [place] for pulmonology Given PO Levaquin in ED Requiring oxygen Lactic acid WNL IV fluids given in ED PLAN -Switch to IV 750 mg Levaquin -Sputum culture -Mycoplasma, MRSA, Strep pneumo, VRP - ordered -IS/Acapella/RT consult -Scheduled Duonebs -Blood cultures pending -Scheduled robitussin DM -IV fluids as ordered -Obtain pulmonology records -Procalcitonin ordered -Droplet isolation -O2 as needed -Home medications as ordered -AM Labs -Ambulate Diabetic neuropathy Diabetes mellitus; unknown A1C Insulin pump in place Obesity Has insulin pump and monitor Blood sugars have been stable per patient report. Glucose 109 in ED Reports close follow-up by PCP PLAN -Obtain A1C -Continue insulin pump -Hold PO diabetic meds -Monitor blood sugars Anxiety Hypothyroidism Chronic constipation HLD (hyperlipidemia) Arthritis Plan -Home medications -PRN constipation meds if indicated -Pharmacy/nursing to verify home medications as there are some discrepancies Hx of cervical spine surgery History of lumbar spinal fusion Significant back pain Reports significant "shaking" when not on home baclofen Plan -Continue home medications DVT prophylaxis: Lovenox Code status: Full code (confirmed with patient) PCP: Dr. Silva Disposition: Admitted to medical floor for management of hypoxia and pneumonia. Patient was offered transfer in ED as floor was on diversion. Elected to stay until bed opened up the next morning and refused transfer. Expected length of stay: 3-4 total days
[2019-08-20] MEDS ORDERED: Levofloxacin 750 MG Tab PO ONE (06:00)
== END 2019-08-19 16:26 | disposition home or self-care (01) | DRG 190 ==
LOC: JD.ED 01:51 → JD.MS 08:16
PROVIDERS: ADMIT Internal Medicine; ATTEND Internal Medicine
DX: J44.0 Chronic obstructive pulmonary disease with (acute) lower respiratory infection (principal); J44.9 Chronic obstructive pulmonary disease, unspecified; J18.9 Pneumonia, unspecified organism; E87.4 Mixed disorder of acid-base balance; E11.40 Type 2 diabetes mellitus with diabetic neuropathy, unspecified; I10 Essential (primary) hypertension; E11.42 Type 2 diabetes mellitus with diabetic polyneuropathy; E66.9 Obesity, unspecified; K59.09 Other constipation; E03.9 Hypothyroidism, unspecified; F41.9 Anxiety disorder, unspecified; E78.5 Hyperlipidemia, unspecified; M19.90 Unspecified osteoarthritis, unspecified site; R91.8 Other nonspecific abnormal finding of lung field; E78.00 Pure hypercholesterolemia, unspecified; Z96.41 Presence of insulin pump (external) (internal); Z88.0 Allergy status to penicillin; Z87.891 Personal history of nicotine dependence; Z79.82 Long term (current) use of aspirin; Z79.4 Long term (current) use of insulin; Z79.890 Hormone replacement therapy; Z79.899 Other long term (current) drug therapy; Z90.49 Acquired absence of other specified parts of digestive tract; Z68.38 Body mass index [BMI] 38.0-38.9, adult
CPT/HCPCS: 36415; 36600; 71046; 71275; 80053; 82803; 83605; 83880; 84145; 84484; 85007; 85027; 85379; 85610; 85730; 86738; 87040 ×2; 87804 ×2; 93005; 96360; 96361; 99285; A9270 ×2; J7030; 83735; 84100; 85025; 87070; 87205; 87486; 87581; 87632; 87641; 87798; 87899; 93010; 94640; 94667; 94668; 94760; 94761; 97161-GP; 99284; J1650; J1956; J7120; J7620-GY

== ENCOUNTER 2023-05-03 21:04 | Inpatient (IN) | payer MEDICARE, OTHER ==
[2023-05-03 21:28] LABS: BASOPHILS ABSOLUTE AUTO 0.1 K/mm3 (0.0-0.2); EOSINOPHILS ABSOLUTE AUTO 0.3 K/mm3 (0.0-0.4); EOSINOPHILS PERCENT AUTO 4.2 % (0.0-6.0); HEMATOCRIT 40.3 % (42.0-52.0); IMMATURE GRAN ABSOLUTE AUTO 0.05 K/mm3 (0.00-0.05); IMMATURE GRAN PERCENT AUTO 0.6 % (0.0-0.4); LYMPHOCYTES ABSOLUTE AUTO 1.9 K/mm3 (1.0-4.8); LYMPHOCYTES PERCENT AUTO 23.3 % (24.0-44.0); MEAN CORPUSCULAR HEMOGLOBIN 28.4 pg (28.0-32.0); MEAN CORPUSCULAR HGB CONC 32.3 g/dl (32.0-36.0); MEAN PLATELET VOLUME 9.7 fl (9.4-12.4); MONOCYTES ABSOLUTE AUTO 0.6 K/mm3 (0.0-0.8); MONOCYTES PERCENT AUTO 6.8 % (0.0-8.0); NEUTROPHILS ABSOLUTE AUTO 5.2 K/mm3 (1.8-7.7); NEUTROPHILS PERCENT AUTO 64.1 % (41.0-71.0); PLATELET COUNT,PLT 297 K/mm3 (150-400); RED BLOOD CELL COUNT 4.58 M/mm3 (4.52-5.90)
[2023-05-03] MEDS ORDERED: Lidocaine 1% 20 ML MDV ONE (21:43)
[2023-05-03 21:55] LABS: A/G RATIO 0.9 (1-2); ALBUMIN 3.3 g/dl (3.4-5.0); ANION GAP 12.9 (5-15); BILIRUBIN TOTAL 0.3 mg/dL (0.2-1.0); BUN/CREATININE RATIO 13.8 (14-18); CALCIUM 8.9 mg/dL (8.5-10.1); CREATININE 1.6 mg/dL (0.7-1.3); EST CRCL DRUG DOSING (CG) 45.63 mL/min; POTASSIUM,K 4.9 mEq/L (3.5-5.1); PROTEIN TOTAL,TP 6.9 g/dl (6.4-8.2)
[2023-05-03] MEDS: HYDROmorphone 0.5 MG/0.5 ML Syringe ONE (21:59)
[2023-05-03] MEDS ORDERED: HYDROmorphone 1 MG/ML Syringe ONE (22:21)
[2023-05-04] MEDS: HYDROmorphone 0.5 MG/0.5 ML Syringe ONE (00:02)
[2023-05-04] MEDS ORDERED: Acetaminophen/HYDROcodone 325-5 MG Tab PO PRN (01:31)
[2023-05-04] MEDS: HYDROmorphone 0.5 MG/0.5 ML Syringe IVPUSH PRN ×5 (01:44→23:03)
[2023-05-04] MEDS ORDERED: Acetaminophen 325 MG Tab PO PRN (01:51)
[2023-05-04] MEDS: Acetaminophen/HYDROcodone 325-10 MG Tab PO PRN ×3 (01:53→21:03)
[2023-05-04] MEDS ORDERED: Sodium Chloride 0.9% 1,000 ML IV SCH (02:15)
[2023-05-04] MEDS ORDERED: Lactated Ringers 1,000 ML IV SCH (02:15)
[2023-05-04 05:33] LABS: BASOPHILS ABSOLUTE AUTO 0.1 K/mm3 (0.0-0.2); BASOPHILS PERCENT AUTO 0.9 % (0.0-1.0); EOSINOPHILS ABSOLUTE AUTO 0.3 K/mm3 (0.0-0.4); EOSINOPHILS PERCENT AUTO 3.2 % (0.0-6.0); HEMATOCRIT 36.4 % (42.0-52.0); HEMOGLOBIN 11.7 gm/dl (14.0-18.0); IMMATURE GRAN ABSOLUTE AUTO 0.02 K/mm3 (0.00-0.05); IMMATURE GRAN PERCENT AUTO 0.3 % (0.0-0.4); LYMPHOCYTES ABSOLUTE AUTO 1.8 K/mm3 (1.0-4.8); LYMPHOCYTES PERCENT AUTO 22.4 % (24.0-44.0); MEAN CORPUSCULAR HEMOGLOBIN 28.1 pg (28.0-32.0); MEAN CORPUSCULAR HGB CONC 32.1 g/dl (32.0-36.0); MEAN CORPUSCULAR VOLUME 87.5 fl (83.0-99.0); MEAN PLATELET VOLUME 10.2 fl (9.4-12.4); MONOCYTES ABSOLUTE AUTO 0.6 K/mm3 (0.0-0.8); MONOCYTES PERCENT AUTO 8.1 % (0.0-8.0); NEUTROPHILS ABSOLUTE AUTO 5.1 K/mm3 (1.8-7.7); NEUTROPHILS PERCENT AUTO 65.1 % (41.0-71.0); PLATELET COUNT,PLT 266 K/mm3 (150-400); RED BLOOD CELL COUNT 4.16 M/mm3 (4.52-5.90); WHITE BLOOD CELL COUNT,WBC 7.81 K/mm3 (3.9-11.3)
[2023-05-04 05:57] LABS: A/G RATIO 0.9 (1-2); ANION GAP 10.2 (5-15); BILIRUBIN TOTAL 0.3 mg/dL (0.2-1.0); BUN/CREATININE RATIO 17.5 (14-18); CALCIUM 8.5 mg/dL (8.5-10.1); CREATININE 1.2 mg/dL (0.7-1.3); EST CRCL DRUG DOSING (CG) 60.83 mL/min; POTASSIUM,K 4.2 mEq/L (3.5-5.1); PROTEIN TOTAL,TP 6.3 g/dl (6.4-8.2)
[2023-05-04] MEDS ORDERED: Benzonatate 100 MG Cap PO PRN (07:42)
[2023-05-04] MEDS ORDERED: Cyclobenzaprine 10 MG Tab PO PRN ×2 (07:42→08:21)
[2023-05-04] MEDS ORDERED: Albuterol 6.7 GM Inhaler INH PRN (07:42)
[2023-05-04] MEDS ORDERED: Orphenadrine 100 MG Tab.ER PO PRN ×2 (07:42→08:23)
[2023-05-04] MEDS ORDERED: Non-Formulary Medication 1 Each (Insulin Aspart 100 UNIT/ML Pen) SQ SCH (07:45)
[2023-05-04] MEDS: Morphine 15 MG Tab.ER PO SCH ×2 (08:45→20:03)
[2023-05-04] MEDS: Aspirin 81 MG Tab.EC PO SCH (08:47)
[2023-05-04] MEDS: Multivitamin Tab PO SCH (08:48)
[2023-05-04] MEDS: Calcium Carbonate/Vitamin D3 600 MG-200 Units Tab PO SCH (08:48)
[2023-05-04] MEDS: metFORMIN 500 MG Tab PO SCH ×2 (08:48→20:02)
[2023-05-04] MEDS: Lisinopril 10 MG Tab PO SCH (08:48)
[2023-05-04] MEDS: Metoprolol Succinate 25 MG Tab.ER PO SCH (08:49)
[2023-05-04] MEDS: Baclofen 10 MG Tab PO SCH ×3 (08:49→20:02)
[2023-05-04] MEDS: Polyethylene Glycol 3350 Powder 17 GM Packet PO SCH (08:49)
[2023-05-04] MEDS ORDERED: Non-Formulary Medication 1 Each (Fluticasone Propion/Salmeterol [Fluticasone-Salmeterol 25 IH SCH (09:00)
[2023-05-04] MEDS ORDERED: Empagliflozin 25 MG Tab PO SCH (09:00)
[2023-05-04] MEDS ORDERED: atorvaSTATin 40 MG Tab PO SCH ×2 (09:00)
[2023-05-04] MEDS ORDERED: Tamsulosin 0.4 MG Cap.ER PO SCH (09:00)
[2023-05-04] MEDS: Formoterol/Mometasone 200-5 MCG 8.8 GM Inhaler IH SCH ×2 (09:13→20:17)
[2023-05-04] MEDS ORDERED: guaiFENesin/Dextromethorphan 100-10 MG/5 ML Soln 5 ML Cup PO SCH (14:00)
[2023-05-04] MEDS: Tamsulosin 0.4 MG Cap.ER PO SCH (20:02)
[2023-05-04] MEDS ORDERED: Sertraline 50 MG Tab PO SCH (21:00)
[2023-05-05] MEDS: HYDROmorphone 0.5 MG/0.5 ML Syringe IVPUSH PRN ×3 (02:25→10:07)
[2023-05-05] MEDS ORDERED: Levothyroxine 100 MCG Tab PO SCH (06:00)
[2023-05-05] MEDS ORDERED: Pantoprazole 40 MG Tab.CR PO SCH (07:00)
[2023-05-05] MEDS: metFORMIN 500 MG Tab PO SCH (08:16)
[2023-05-05] MEDS: Multivitamin Tab PO SCH (08:16)
[2023-05-05] MEDS: Aspirin 81 MG Tab.EC PO SCH (08:17)
[2023-05-05] MEDS: Tamsulosin 0.4 MG Cap.ER PO SCH (08:17)
[2023-05-05] MEDS: Morphine 15 MG Tab.ER PO SCH (08:17)
[2023-05-05] MEDS: Lisinopril 10 MG Tab PO SCH (08:18)
[2023-05-05] MEDS: Calcium Carbonate/Vitamin D3 600 MG-200 Units Tab PO SCH (08:18)
[2023-05-05] MEDS: Metoprolol Succinate 25 MG Tab.ER PO SCH (08:19)
[2023-05-05] MEDS: Baclofen 10 MG Tab PO SCH (08:19)
[2023-05-05] MEDS: Polyethylene Glycol 3350 Powder 17 GM Packet PO SCH (08:20)
[2023-05-05] MEDS: Formoterol/Mometasone 200-5 MCG 8.8 GM Inhaler IH SCH (09:37)
[2023-05-05 12:40] VITALS: BP 120/84; PULSE 62
== END 2023-05-05 14:05 | disposition home or self-care (01) | DRG 200 ==
LOC: JD.ED 21:04 → JD.ICU 05-04 01:03
PROVIDERS: ADMIT Surgery; ATTEND Surgery
PROC: 0W9930Z Drainage of Right Pleural Cavity with Drainage Device, Percutaneous Approach (ICD-10-PCS; principal; 2023-05-04)
PROC: 0WP9X0Z Removal of Drainage Device from Right Pleural Cavity, External Approach (ICD-10-PCS; 2023-05-04)
DX: S27.0XXA Traumatic pneumothorax, initial encounter (principal); J93.82 Other air leak; T85.628A Displacement of other specified internal prosthetic devices, implants and grafts, initial encounter; J44.9 Chronic obstructive pulmonary disease, unspecified; E78.00 Pure hypercholesterolemia, unspecified; K59.09 Other constipation; G89.29 Other chronic pain; M19.90 Unspecified osteoarthritis, unspecified site; M54.2 Cervicalgia; G43.909 Migraine, unspecified, not intractable, without status migrainosus; E11.40 Type 2 diabetes mellitus with diabetic neuropathy, unspecified; E03.9 Hypothyroidism, unspecified; E66.9 Obesity, unspecified; F41.9 Anxiety disorder, unspecified; F32.A Depression, unspecified; Z88.0 Allergy status to penicillin; Z79.899 Other long term (current) drug therapy; Z79.4 Long term (current) use of insulin; Z79.82 Long term (current) use of aspirin; Z79.891 Long term (current) use of opiate analgesic; Z79.84 Long term (current) use of oral hypoglycemic drugs; Z85.820 Personal history of malignant melanoma of skin; Z68.31 Body mass index [BMI] 31.0-31.9, adult; Z90.89 Acquired absence of other organs; Z90.49 Acquired absence of other specified parts of digestive tract; Z98.890 Other specified postprocedural states; W00.2XXA Other fall from one level to another due to ice and snow, initial encounter
CPT/HCPCS: 36415; 70490; 70490-26; 71045; 71045-26; 71250; 71250-26; 80053; 82947; 84484; 85025; 93005; 93010; 94640; 94761; 99285; A9270-GY; J1170; J3490; J7120

== ENCOUNTER 2023-05-24 05:55 | Day surgery (SDC) | payer MEDICARE, OTHER ==
[~2023-05-24 05:55] MED LIST: Lactated Ringers 1,000 ML IV SCH; Morphine 8 MG, EPINEPHrine 0.3 MG, Ketorolac 30 MG, Sodium Chloride 0.9% 7.9 ML PRN; Sodium Chloride 0.9% 10 ML Syringe FLUSH PRN; Sodium Chloride 0.9% 10 ML Syringe FLUSH SCH
[2023-05-24] MEDS ORDERED: Acetaminophen 325 MG Tab PO SCH (06:00)
[2023-05-24] MEDS ORDERED: VANCOmycin 1.25 GM/250 ML 1.25 GM in Premix Bag 1 BAG IV ONE (06:00)
[2023-05-24] MEDS ORDERED: Pregabalin 25 MG Cap PO SCH (06:00)
[2023-05-24] MEDS ORDERED: Morphine 8 MG, EPINEPHrine 0.3 MG, Ketorolac 30 MG, Sodium Chloride 0.9% 7.9 ML PRN ×4 (06:00)
[2023-05-24] MEDS ORDERED: oxyCODONE ER 10 MG TAB.ER PO SCH (06:00)
[2023-05-24] MEDS ORDERED: Ropivacaine 0.5% 5 MG/ML 30 ML SDV ONE (06:37)
[2023-05-24] MEDS ORDERED: Propofol 200 MG/20 ML SDV ONE (06:43)
[2023-05-24] MEDS ORDERED: fentaNYL 100 MCG/2 ML SDV ONE (06:44)
[2023-05-24] MEDS ORDERED: Midazolam 1 MG/ML 2 ML SDV ONE (06:44)
[2023-05-24] MEDS ORDERED: Vancomycin 1 GM SDV ONE (06:45)
[2023-05-24] MEDS ORDERED: Tranexamic Acid 1,000 MG/10 ML Vial ONE (06:46)
[2023-05-24] MEDS ORDERED: Lidocaine 2% 5 ML SDV ONE (06:46)
[2023-05-24] MEDS ORDERED: Phenylephrine 1% 10 MG/ML SDV ONE (07:23)
[2023-05-24] MEDS ORDERED: Sodium Chloride 0.9% 100 ML ONE (07:23)
[2023-05-24] MEDS ORDERED: Ketamine 200 MG/20 ML MDV ONE (07:24)
[2023-05-24] MEDS ORDERED: Ondansetron 4 MG/2 ML SDV IVPUSH PRN (07:58)
[2023-05-24] MEDS ORDERED: HYDROmorphone 0.5 MG/0.5 ML Syringe IVPUSH PRN (07:58)
[2023-05-24] MEDS ORDERED: fentaNYL 100 MCG/2 ML SDV IVPUSH PRN (07:58)
[2023-05-24] MEDS: Triamcinolone Acetonide 40 MG/ML 1 ML SDV ONE ×3 (08:12→08:39)
[2023-05-24] MEDS: Bupivacaine 0.25% 10 ML SDV ONE ×3 (08:13→08:39)
[2023-05-24] MEDS ORDERED: Lactated Ringers 1,000 ML ONE (08:28)
[2023-05-24] MEDS ORDERED: oxyCODONE 5 MG Tab PO PRN (10:44)
[2023-05-24] MEDS: oxyCODONE 5 MG Tab PO PRN ×2 (10:49→12:20)
[2023-05-24 12:16] VITALS: BP 103/72; PULSE 66
== END 2023-05-24 12:27 | disposition home or self-care (01) ==
LOC: JD.SDS 05:55
PROVIDERS: ATTEND Orthopaedic Surgery
DX: M17.0 Bilateral primary osteoarthritis of knee (principal); J44.9 Chronic obstructive pulmonary disease, unspecified; I10 Essential (primary) hypertension; E11.65 Type 2 diabetes mellitus with hyperglycemia; E78.2 Mixed hyperlipidemia; I25.10 Atherosclerotic heart disease of native coronary artery without angina pectoris; E03.9 Hypothyroidism, unspecified; E66.01 Morbid (severe) obesity due to excess calories; Z68.33 Body mass index [BMI] 33.0-33.9, adult; F17.290 Nicotine dependence, other tobacco product, uncomplicated; Z79.4 Long term (current) use of insulin; Z79.84 Long term (current) use of oral hypoglycemic drugs; Z79.82 Long term (current) use of aspirin; Z79.890 Hormone replacement therapy; Z79.85 Long-term (current) use of injectable non-insulin antidiabetic drugs; Z79.899 Other long term (current) drug therapy; Z88.0 Allergy status to penicillin
CPT/HCPCS: 0055T; 20610; 27447; 73560; 97116; 97161; A9270; C1713; C1776; J0171; J1885; J2250; J2270; J2371; J2704; J2795; J3010; J3301; J3370; J3490; J7030; J7120; 01402

== ENCOUNTER 2024-02-15 08:19 | Day surgery (SDC) | payer MEDICARE, OTHER ==
[2024-02-15] MEDS: Polymyxin B/Trimethoprim 10 ML Bottle EYELF SCH (09:21)
[2024-02-15] MEDS: Brimonidine 0.2% Ophth Soln 5 ML Bottle EYELF SCH (09:25)
[2024-02-15] MEDS: Phenylephrine 2.5% Ophth Soln 2 ML Bot EYELF SCH (09:29)
[2024-02-15] MEDS: Tropicamide 1% Ophth Soln 3 ML Bottle EYELF SCH (09:34)
[2024-02-15] MEDS: Tetracaine HCl/PF 0.5% 4 ML Bottle EYEBOTH SCH (10:18)
[2024-02-15] MEDS: Lidocaine 1% PF 2 ML SDV INJECT SCH (10:34)
[2024-02-15] MEDS: Pilocarpine 4% Ophth Soln 15 ML Bot EYELF SCH (10:49)
[2024-02-15] MEDS: Cefuroxime 10 MG/ML SYRINGE EYELF SCH (10:49)
[2024-02-15 11:04] VITALS: BP 124/57; PULSE 58
== END 2024-02-15 10:59 | disposition home or self-care (01) ==
LOC: JD.SDS 08:19
PROVIDERS: ATTEND Ophthalmology
DX: E10.36 Type 1 diabetes mellitus with diabetic cataract (principal); H25.812 Combined forms of age-related cataract, left eye; H21.81 Floppy iris syndrome; H21.42 Pupillary membranes, left eye; H26.491 Other secondary cataract, right eye; H35.3 Degeneration of macula and posterior pole; H35.3122 Nonexudative age-related macular degeneration, left eye, intermediate dry stage; H35.363 Drusen (degenerative) of macula, bilateral; H16.103 Unspecified superficial keratitis, bilateral; H16.223 Keratoconjunctivitis sicca, not specified as Sjogren's, bilateral; H02.831 Dermatochalasis of right upper eyelid; H02.834 Dermatochalasis of left upper eyelid; H43.813 Vitreous degeneration, bilateral; Z96.1 Presence of intraocular lens; F41.9 Anxiety disorder, unspecified; J44.9 Chronic obstructive pulmonary disease, unspecified; N40.0 Benign prostatic hyperplasia without lower urinary tract symptoms; E78.00 Pure hypercholesterolemia, unspecified; Z79.85 Long-term (current) use of injectable non-insulin antidiabetic drugs; Z79.84 Long term (current) use of oral hypoglycemic drugs; Z79.899 Other long term (current) drug therapy; Z88.0 Allergy status to penicillin
CPT/HCPCS: 66982; A9270; J0697; J3490